=== PATIENT | female | born 1940 ===

== ENCOUNTER 2017-12-01 11:56 | Inpatient (IN) | payer MEDICARE ==
[2017-12-01 12:36] VITALS: BMI 27.6
[2017-12-01] MEDS ORDERED: Apap-Butalbital-Caffeine 325-50-40mg Tab PO PRN (17:13)
[2017-12-01] MEDS: Latanoprost 0.005% Opht SOUTION OU SCH (21:53)
[2017-12-02] MEDS: Levothyroxine 88 MCG TAB PO SCH (06:26)
[2017-12-02 06:41] LABS: HEMOGLOBIN 11.5 g/dL (12.0-16.0); MEAN CELL VOLUME 72.5 fl (81.0-99.0); MEAN CORPUSCULAR HEMOGLOBIN 22.7 pg (27.0-31.0); MEAN CORPUSCULAR HGB CONC 31.3 g/dL (33.0-37.0); RBC 5.05 Mil/uL (3.80-5.20); RED CELL DISTRIBUTION WIDTH 15.1 % (11.5-14.5); WHITE BLOOD COUNT 6.8 K/uL (4.8-10.8)
[2017-12-02 07:00] LABS: ALBUMIN 3.6 g/dL (3.5-5.0); ALT/SGPT 22 U/L (9-52); AST/SGOT 43 U/L (14-36); BLOOD UREA NITROGEN 17 mg/dl (7-17); CALCIUM 9.4 mg/dL (8.4-10.2); GFR AFRICAN-AMERICAN > 60; GFR NON-AFRICAN AMERICAN > 60
[2017-12-02] MEDS: Enoxaparin 40 mg Syringe SC SCH (08:33)
--- NOTE | 2017-12-02 10:45 | CP.PCM.CON ---
History of Present Illness - History of Present Illness History of Present Illness: Ms. Spence is 77 yr old woman who has a presumed history of prior stroke, and neurology consult placed for dizziness and confusion and left sided numbness which occurred on the day of admission and intermittent left sided numbness x 3 months. Patient describes the headache as a gradual onset. Patient states that she lost her balance because of the dizziness.. The MRI Brain which has already been done and shows acute to subacute left mca stroke. There is also a history of an old cerebellar stroke on CT head which Miss Spence is not aware of. On admission NIHSS stroke scale is 6. During the admission, she develop pulmonary congestion and was given diuretic and on bipap machine for a day. She was transferred to [facility] acute rehab for further therapy. Review of Systems - Review of Systems All systems: reviewed and no additional remarkable complaints except Past Patient History - Past Medical History & Family History Past Medical History?: Yes - Past Social History Smoking Status: Former Smoker - CARDIAC Hx Congestive Heart Failure: Yes Hx Hypercholesterolemia: Yes Hx Hypertension: Yes - NEUROLOGICAL HX Cerebrovascular Accident: Yes (As per patient had mild CVA) Other/Comment: As per Patient she had a mild stroke years ago, patient not sure what year. - ENDOCRINE/METABOLIC Other/Comment: Pre diabetic. 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 - HEMATOLOGICAL/ONCOLOGICAL Hx AIDS: No Hx Human Immunodeficiency Virus (HIV): No - MUSCULOSKELETAL/RHEUMATOLOGICAL Hx Falls: Yes - GENITOURINARY/GYNECOLOGICAL Other/Comment: fibroids - PSYCHIATRIC Hx Substance Use: No - SURGICAL HISTORY Hx Surgeries: No Other/Comment: bilateral tubal ligation - ANESTHESIA Hx Anesthesia: Yes Hx Anesthesia Reactions: No Meds Allergies/Adverse Reactions: Allergies Allergy/AdvReac Type Severity Reaction Status Date / Time No Known Allergies Allergy Verified 12/01/17 15:19 - Medications Medications: Current Medications Acetaminophen (Tylenol 325mg Tab) 650 mg PO Q6 PRN PRN Reason: Pain scale 1-10 Acetaminophen/Butalbital/Caffeine (Fioricet) 1 tab PO Q4 PRN PRN Reason: Headache Aspirin (Aspirin Chewable) 81 mg PO DAILY [facility] Last Admin: 12/02/17 08:33 Dose: 81 mg Atorvastatin Calcium (Lipitor) 10 mg PO HS [facility] Last Admin: 12/01/17 21:52 Dose: 10 mg Clopidogrel Bisulfate (Plavix) 75 mg PO DAILY [facility] Last Admin: 12/02/17 08:33 Dose: 75 mg Enoxaparin Sodium (Lovenox) 40 mg SC DAILY [facility] PRN Reason: Protocol Last Admin: 12/02/17 08:33 Dose: 40 mg Famotidine (Pepcid) 20 mg PO DAILY [facility] Last Admin: 12/02/17 08:33 Dose: 20 mg Furosemide (Lasix) 20 mg PO DAILY [facility] Last Admin: 12/02/17 08:33 Dose: 20 mg Latanoprost (Xalatan Opht) 1 drop OU HS [facility] Last Admin: 12/01/17 21:53 Dose: 1 drop Levothyroxine Sodium (Synthroid) 88 mcg PO DAILY@0630 [facility] Last Admin: 12/02/17 06:26 Dose: 88 mcg Physical Exam - Constitutional Appears: No Acute Distress - Head Exam Head Exam: NORMAL INSPECTION - Eye Exam Eye Exam: EOMI, Normal appearance, PERRL Pupil Exam: NORMAL ACCOMODATION, PERRL - ENT Exam ENT Exam: Mucous Membranes Moist, Normal Exam - Neck Exam Neck exam: Positive for: Normal Inspection - Respiratory Exam Respiratory Exam: Clear to Auscultation Bilateral, NORMAL BREATHING PATTERN - Cardiovascular Exam Cardiovascular Exam: +S1, +S2 - GI/Abdominal Exam GI & Abdominal Exam: Normal Bowel Sounds, Soft. absent: Tenderness - Extremities Exam Extremities exam: Positive for: normal inspection Additional comments: right side weakness - Neurological Exam Neurological exam: Alert, CN II-XII Intact, Oriented x3 - Expanded Neurological Exam Expanded Patient oriented to: person, place, time Cranial nerves: EOM's Intact: Normal, Facial Palsey w/Forehead Movement: Normal , Facial Palsey w/o Forehead Movement: Normal, Facial Sensation: Normal, Gag Reflex: Normal, Nystagmus: Normal, Tongue Deviation: Normal Cerebellar Function: Finger to Nose: Normal, Heel to Eisenberg: Abnormal Right Upper motor neuron: Sudarshan Neglect: Normal, Pronator Drift: Abnormal Right, Sensory Extinction: Normal Sensory exam: Lower Extremity 2 Point Discrimination: Normal, Lower Extremity Light Touch: Normal, Lower Extremity Pin Prick: Normal, Lower Extremity Temperature: Normal, Upper Extremity 2 Point Discrimination: Normal, Upper Extremity Light Touch: Normal, Upper Extremity Pin Prick: Normal, Upper Extremity Temperature: Normal Neuro motor strength exam: Left Upper Extremity: 5, Right Upper Extremity: 3, Left Lower Extremity: 5, Right Lower Extremity: 3 Results - Vital Signs Recent Vital Signs: Last Vital Signs Temp 97.9 F 12/02/17 07:33 Pulse 66 12/02/17 07:33 Resp 20 12/02/17 07:33 BP 122/72 12/02/17 08:33 Pulse Ox 97 12/02/17 07:33 - Labs Result Diagrams: 12/02/17 05:20 12/02/17 05:20 Labs: Laboratory Results - last 24 hr 12/02/17 12/02/17 05:20 05:20 WBC 6.8 RBC 5.05 Hgb 11.5 L Hct 36.6 MCV 72.5 L MCH 22.7 L MCHC 31.3 L RDW 15.1 H Plt Count 342 Sodium 139 Potassium 4.1 Chloride 101 Carbon Dioxide 27 Anion Gap 15 BUN 17 Creatinine 0.9 Est GFR ( Amer) > 60 Est GFR (Non-Af Amer) > 60 Random Glucose 115 H Calcium 9.4 Total Bilirubin 0.6 AST 43 H ALT 22 Alkaline Phosphatase 88 Total Protein 7.2 Albumin 3.6 Globulin 3.7 Albumin/Globulin Ratio 1.0 Assessment & Plan (1) Ischemic stroke Assessment and Plan: Ms. Spence is 77 yr old woman who has a presumed history of prior stroke, dizziness and confusion and left sided numbness which occurred on the day of admission and intermittent left sided numbness x 3 months. Patient describes the headache as a gradual onset. Case discussed with DR. Newton, recommend the followin. PT/OT/ST eval and treat 2. continue aspirin 81 mg PO daily and plavix 75 mg PO daily 3. continue statin with goal to keep LDL < 70 4. DVT prophylaxis 5. Blood pressure control, glycemic control 6. echocardiogram since patient refused echocardiogram and nuclear test in [place] to evaluate LV function, especially with her incident of pulmonary congestion. Thank you Status: Acute
--- NOTE | 2017-12-02 11:48 | PSY.TMCNF ---
Nursing - Vital Signs Vital Signs (Last 8 hours): Vital Signs 12/02/17 12/02/17 12/02/17 07:33 08:33 11:38 Temperature 97.9 F 97.9 F Pulse Rate 66 66 Respiratory 20 20 Rate Blood Pressure 122/72 122/72 122/72 O2 Sat by Pulse 97 Oximetry Pain: 0 - Precautions: Precautions: Fall Prevention - Medications/Other Issues Comment: -(+) periods of confusion and forgetfulness. - for 2D echo - Consults Comment: Dr. Lorenz/ Dr. Newton - Toileting Toileting: Moderate Assistance - Bladder Management Bladder Pattern: Normal Voiding Method: Toilet, Bedpan Bladder Management: Moderate Assistance Frequency of Accidents: 0 - Bowel Management Bowel Pattern: Normal Bowel Management: Moderate Assistance Frequency of Accidents: 0 - Transfers Transfers: Moderate Assistance - ADL's ADL's: Moderate Assistance - Patient/Family Teaching Comments: Care post CVA and safety precautions - Goals/Time Frame Comments: Per multidisciplinary care plan and goals - Provider Provider: Stephanie LOPEZN RN CRRN Physical Therapy - Pain Management Techniques: Medication - Assessment/Plan Assessment: Marian Spence presents with moderate deficits in cognitive- linguistic skills as evidenced by decreased orientation, short term recall, thought organization and reasoning. Pt would benefit from skilled ST tx to improve these areas 3-5x/week. - Provider License Number: [id number] Occupational Therapy - Arousal/Attention/Orientation Patient Orientation: Person, Place - ADL/IADL Self Feeding: Supervision, Verbal Cues, Set-up Help, Moderate Assistance Grooming: Supervision, Verbal Cues, Set-up Help, Moderate Assistance Dressing-Upper Extremity: Supervision, Verbal Cues, Set-up Help, Moderate Assistance Dressing-Lower Extremity: Supervision, Verbal Cues, Set-up Help, Maximum Assistance - Sitting Balance Static Sitting: Supervision Dynamic Sitting: Requires supervision - Transfers Wheelchair to Bed Transfers: Supervision, Verbal Cues, Set-up Help, Minimal Assistance, Moderate Assistance Toilet Transfers: Supervision, Verbal Cues, Set-up Help, Minimal Assistance, Moderate Assistance - Upper Extremity Status Right Upper Extremity Comment: Decreased coordination R hand. - Pain Alleviating Techniques: Medication - Assessment/Plan Assessment: Marian Spence presents with moderate deficits in cognitive- linguistic skills as evidenced by decreased orientation, short term recall, thought organization and reasoning. Pt would benefit from skilled ST tx to improve these areas 3-5x/week. - Provider Therapist: LARRY Moore Speech Therapy - Consult Information Patient on Program: Yes Medical Diagnosis: CVA Treatment Diagnosis: moderate cognitive-lingusitic deficits - Assessment Problem Solving Impairment: Moderate Memory Impairment: Moderate - Plan Assessment: Marian Spence presents with moderate deficits in cognitive- linguistic skills as evidenced by decreased orientation, short term recall, thought organization and reasoning. Pt would benefit from skilled ST tx to improve these areas 3-5x/week. Plan: Continue Speech/Language Therapy Frequency: 3-5 times per week Duration: 1 week Goals/Timeframe: As per evaluation dated 12/02/17 Recommendations: Speech-language therapy 3-5x/week. - Provider Therapist: Marybeth Brown License Number: [id number] Recreational Therapy - Assessment Assessment/Plan: Marian Spence presents with moderate deficits in cognitive- linguistic skills as evidenced by decreased orientation, short term recall, thought organization and reasoning. Pt would benefit from skilled ST tx to improve these areas 3-5x/week. Nutrition - Current Diet Current Diet/ Supplement/ Feedings: Heart healthy diet - Appetite Percent Meal Consumed: 75-100% - Comments Comments: Care post CVA and safety precautions - Assessment/Goals/Time Frame Assessment/Goals/Time Frame: -(+) periods of confusion and forgetfulness. - for 2D echo - Provider Provider: Diane Márquez RD Case Management - Discharge Plan Discharge Plan: Home alone Rehabilitation Plan - Treatment Plan Treatment Plan: Physical Therapy, Occupational Therapy, Speech, Dietary, Patient /Family Education - Recommendation Recommendation: Physical Therapy, Occupational Therapy, Speech, Dietary, Patient /Family Education - Discharge Plan Discharge to: Home
--- NOTE | 2017-12-02 14:10 | CP.PCM.CON ---
History of Present Illness - History of Present Illness History of Present Illness: 77 year old female with left hemiplegia, with PMH of CHF., HTN, HYpothyroidism now admitted for acute rehab Review of Systems - Musculoskeletal Musculoskeletal: Abnormal Gait, Muscle Weakness - Neurological Neurological: Lack of Coordination Past Patient History - Past Medical History & Family History Past Medical History?: Yes - Past Social History Smoking Status: Former Smoker - CARDIAC Hx Congestive Heart Failure: Yes Hx Hypercholesterolemia: Yes Hx Hypertension: Yes - NEUROLOGICAL HX Cerebrovascular Accident: Yes (As per patient had mild CVA) Other/Comment: As per Patient she had a mild stroke years ago, patient not sure what year. - ENDOCRINE/METABOLIC Other/Comment: Pre diabetic. 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 - HEMATOLOGICAL/ONCOLOGICAL Hx AIDS: No Hx Human Immunodeficiency Virus (HIV): No - MUSCULOSKELETAL/RHEUMATOLOGICAL Hx Falls: Yes - GENITOURINARY/GYNECOLOGICAL Other/Comment: fibroids - PSYCHIATRIC Hx Substance Use: No - SURGICAL HISTORY Hx Surgeries: No Other/Comment: bilateral tubal ligation - ANESTHESIA Hx Anesthesia: Yes Hx Anesthesia Reactions: No Meds Allergies/Adverse Reactions: Allergies Allergy/AdvReac Type Severity Reaction Status Date / Time No Known Allergies Allergy Verified 12/01/17 15:19 - Medications Medications: Current Medications Acetaminophen (Tylenol 325mg Tab) 650 mg PO Q6 PRN PRN Reason: Pain scale 1-10 Acetaminophen/Butalbital/Caffeine (Fioricet) 1 tab PO Q4 PRN PRN Reason: Headache Aspirin (Aspirin Chewable) 81 mg PO DAILY [facility] Last Admin: 12/02/17 08:33 Dose: 81 mg Atorvastatin Calcium (Lipitor) 10 mg PO HS [facility] Last Admin: 12/01/17 21:52 Dose: 10 mg Clopidogrel Bisulfate (Plavix) 75 mg PO DAILY [facility] Last Admin: 12/02/17 08:33 Dose: 75 mg Enoxaparin Sodium (Lovenox) 40 mg SC DAILY [facility] PRN Reason: Protocol Last Admin: 12/02/17 08:33 Dose: 40 mg Famotidine (Pepcid) 20 mg PO DAILY [facility] Last Admin: 12/02/17 08:33 Dose: 20 mg Furosemide (Lasix) 20 mg PO DAILY [facility] Last Admin: 12/02/17 08:33 Dose: 20 mg Latanoprost (Xalatan Opht) 1 drop OU HS [facility] Last Admin: 12/01/17 21:53 Dose: 1 drop Levothyroxine Sodium (Synthroid) 88 mcg PO DAILY@0630 [facility] Last Admin: 12/02/17 06:26 Dose: 88 mcg Physical Exam - Head Exam Head Exam: ATRAUMATIC, NORMAL INSPECTION, NORMOCEPHALIC - Eye Exam Eye Exam: EOMI, Normal appearance, PERRL Pupil Exam: NORMAL ACCOMODATION - ENT Exam ENT Exam: Mucous Membranes Moist, Normal Exam - Neck Exam Neck exam: Positive for: Normal Inspection - Respiratory Exam Respiratory Exam: Clear to Auscultation Bilateral, NORMAL BREATHING PATTERN - Cardiovascular Exam Cardiovascular Exam: REGULAR RHYTHM - GI/Abdominal Exam GI & Abdominal Exam: Normal Bowel Sounds - Rectal Exam Rectal Exam: NORMAL INSPECTION Additional comments: left leg weakness problems with coordination - Exam External exam: NORMAL EXTERNAL EXAM Bimanual exam: NORMAL BIMANUAL EXAM - Extremities Exam Extremities exam: Positive for: normal inspection - Back Exam Back exam: NORMAL INSPECTION - Neurological Exam Neurological exam: Alert - Psychiatric Exam Psychiatric exam: Normal Affect, Normal Mood - Skin Skin Exam: Dry, Intact Results - Vital Signs Recent Vital Signs: Last Vital Signs Temp 97.9 F 12/02/17 11:38 Pulse 66 12/02/17 11:38 Resp 20 12/02/17 11:38 BP 122/72 12/02/17 11:38 Pulse Ox 97 12/02/17 07:33 - Labs Result Diagrams: 12/02/17 05:20 12/02/17 05:20 Labs: Laboratory Results - last 24 hr 12/02/17 12/02/17 05:20 05:20 WBC 6.8 RBC 5.05 Hgb 11.5 L Hct 36.6 MCV 72.5 L MCH 22.7 L MCHC 31.3 L RDW 15.1 H Plt Count 342 Sodium 139 Potassium 4.1 Chloride 101 Carbon Dioxide 27 Anion Gap 15 BUN 17 Creatinine 0.9 Est GFR ( Amer) > 60 Est GFR (Non-Af Amer) > 60 Random Glucose 115 H Calcium 9.4 Total Bilirubin 0.6 AST 43 H ALT 22 Alkaline Phosphatase 88 Total Protein 7.2 Albumin 3.6 Globulin 3.7 Albumin/Globulin Ratio 1.0 Assessment & Plan (1) Back pain Status: Acute (2) CHF (congestive heart failure) Status: Acute (3) Dizziness Status: Acute (4) Ischemic stroke Assessment and Plan: plan for physical,occupational, rec and speech therapy for range of motion, strengthening transfers and gait training Status: Acute (5) Osteoarthritis Status: Acute (6) Peripheral edema Status: Acute
--- NOTE | 2017-12-02 14:25 | CP.PCM.PN ---
Subjective - Date & Time of Evaluation Date of Evaluation: 12/02/17 Time of Evaluation: 11:00 - Subjective Subjective: no acute complaints at present Objective - Vital Signs/Intake and Output Vital Signs (last 24 hours): Temp Pulse Resp BP Pulse Ox 97.9 F 66 20 122/72 97 12/02/17 11:38 12/02/17 11:38 12/02/17 11:38 12/02/17 11:38 12/02/17 07:33 - Medications Medications: Current Medications Acetaminophen (Tylenol 325mg Tab) 650 mg PO Q6 PRN PRN Reason: Pain scale 1-10 Acetaminophen/Butalbital/Caffeine (Fioricet) 1 tab PO Q4 PRN PRN Reason: Headache Aspirin (Aspirin Chewable) 81 mg PO DAILY [facility] Last Admin: 12/02/17 08:33 Dose: 81 mg Atorvastatin Calcium (Lipitor) 10 mg PO HS [facility] Last Admin: 12/01/17 21:52 Dose: 10 mg Clopidogrel Bisulfate (Plavix) 75 mg PO DAILY [facility] Last Admin: 12/02/17 08:33 Dose: 75 mg Enoxaparin Sodium (Lovenox) 40 mg SC DAILY [facility] PRN Reason: Protocol Last Admin: 12/02/17 08:33 Dose: 40 mg Famotidine (Pepcid) 20 mg PO DAILY [facility] Last Admin: 12/02/17 08:33 Dose: 20 mg Furosemide (Lasix) 20 mg PO DAILY [facility] Last Admin: 12/02/17 08:33 Dose: 20 mg Latanoprost (Xalatan Opht) 1 drop OU HS [facility] Last Admin: 12/01/17 21:53 Dose: 1 drop Levothyroxine Sodium (Synthroid) 88 mcg PO DAILY@0630 [facility] Last Admin: 12/02/17 06:26 Dose: 88 mcg - Labs Labs: 12/02/17 05:20 12/02/17 05:20 - Head Exam Head Exam: ATRAUMATIC, NORMAL INSPECTION, NORMOCEPHALIC - Eye Exam Eye Exam: EOMI, Normal appearance, PERRL Pupil Exam: NORMAL ACCOMODATION - ENT Exam ENT Exam: Mucous Membranes Moist, Normal Exam - Neck Exam Neck Exam: Full ROM, Normal Inspection - Respiratory Exam Respiratory Exam: Clear to Ausculation Bilateral, NORMAL BREATHING PATTERN - Cardiovascular Exam Cardiovascular Exam: REGULAR RHYTHM - GI/Abdominal Exam GI & Abdominal Exam: Soft, Normal Bowel Sounds - Rectal Exam Rectal Exam: NORMAL INSPECTION - Exam External exam: NORMAL EXTERNAL EXAM - Extremities Exam Extremities Exam: Full ROM, Normal Capillary Refill, Normal Inspection - Back Exam Back Exam: NORMAL INSPECTION - Neurological Exam Neurological Exam: Alert, Awake Neuro motor strength exam: Left Upper Extremity: 3, Left Lower Extremity: 3 Additional comments: problems with balance coordination - Psychiatric Exam Psychiatric exam: Normal Affect - Skin Skin Exam: Dry, Intact Assessment and Plan (1) Back pain Status: Acute (2) CHF (congestive heart failure) Status: Acute (3) Dizziness Status: Acute (4) Ischemic stroke Assessment & Plan: plan for physical, occupational, rec and speech therapy status post team conference Status: Acute (5) Osteoarthritis Status: Acute (6) Peripheral edema Status: Acute
--- NOTE | 2017-12-02 14:26 | PCM.OPOC ---
Physiatry Overall Plan of Care - Overall Plan of Care Estimated Length of Stay in Weeks: 3 Rehab Impairment: Mobility, Gait, Cognition, Speech, Balance, Coordination Etiologic Diagnosis: Cerebrovascular Accident Rehab/Medical Prognosis: Fair - Anticipated Interventions Physical Therapy:: Yes Occupational Therapy:: Yes Speech Therapy:: Yes Recreational Therapy:: Yes - Therapy Goals Bed Mobility: Independent Ambulation: Independent Functional Positional Changes:: Independent - Functional Outcomes Functional Outcomes: fair - Discharge Plan Identification of Barriers to Discharge: Cognition Discharge Destination: Home
[2017-12-02] MEDS: Latanoprost 0.005% Opht SOUTION OU SCH (21:13)
[2017-12-03] MEDS: Levothyroxine 88 MCG TAB PO SCH (06:07)
[2017-12-03] MEDS: Enoxaparin 40 mg Syringe SC SCH (08:03)
--- NOTE | 2017-12-03 09:09 | HP ---
HISTORY OF PRESENT ILLNESS: This is a 77-year-old female with history of multiple medical problems, recently sustained a CVA of the left middle cerebral artery. The patient was transferred from [facility] to acute rehabilitation at [facility] for physical therapy and deconditioning. The patient denied having shortness of breath or chest pain. The patient denied having any dizziness. REVIEW OF SYSTEMS: The patient had pulmonary congestion and was given diuretic and BiPAP machine for a day while she was in [facility] as she was given IV fluids. Other review of system is negative. ALLERGIES: NO KNOWN ALLERGIES. MEDICATIONS: Medications are reviewed as per MAR. SOCIAL HISTORY: History of smoking more than 25 years. No ETOH or substance abuse. FAMILY HISTORY: Noncontributory. PHYSICAL EXAMINATION: GENERAL: The patient is in bed, not in any cardiopulmonary distress. VITAL SIGNS: Blood pressure 130/66, temperature 97.4, respiratory rate 20, and pulse 69. HEENT: Pupils equal and reactive to light. Normal appearing mucosa of the conjunctivae, oropharynx, and nasal membrane mucosa. NECK: Supple. No JVD. No carotid bruits. No lymph nodes. No thyromegaly. CHEST AND LUNGS: Bilaterally symmetrical expansion. Good air exchange. No rales. No rhonchi. CARDIOVASCULAR SYSTEM: PMI is not localized. S1, S2. No additional sounds. ABDOMEN: Normoactive bowel sounds. No tenderness. No organomegaly. No masses. EXTREMITIES: No cyanosis, no clubbing, no edema. ANIMAL ANATOMIST: Alert, awake, and oriented x2, and the patient has slight right-sided weakness in both right upper and lower extremity. LABORATORY DATA: Blood work was unremarkable. ASSESSMENT: 1. 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 2. Hypertension. 3. Impaired glucose tolerance. 4. Ex-smoker. 5. Hypothyroidism. PLAN: We will continue the patient's medications that were started in [facility], and continue physical therapy and occupational therapy. Joanie Calixto MD
--- NOTE | 2017-12-03 09:26 | CP.PCM.PN ---
Subjective - Date & Time of Evaluation Date of Evaluation: 12/03/17 Time of Evaluation: 09:23 - Subjective Subjective: Ms. Spence was seen and examined at the bedside. She is alert, oriented, but complains of nausea but no vomiting. Her systolic blood pressure was 160, lasix was given. She denies any blurred vision, diplopia, headache. She is able to follow simple commands with right side weakness. There was no untoward events overnight. Objective - Vital Signs/Intake and Output Vital Signs (last 24 hours): Temp Pulse Resp BP Pulse Ox 98.2 F 66 18 142/84 96 12/03/17 07:40 12/03/17 08:25 12/03/17 08:25 12/03/17 08:25 12/03/17 07:40 - Medications Medications: Current Medications Acetaminophen (Tylenol 325mg Tab) 650 mg PO Q6 PRN PRN Reason: Pain scale 1-10 Acetaminophen/Butalbital/Caffeine (Fioricet) 1 tab PO Q4 PRN PRN Reason: Headache Amlodipine Besylate (Norvasc) 2.5 mg PO DAILY [facility] Aspirin (Aspirin Chewable) 81 mg PO DAILY [facility] Last Admin: 12/03/17 08:04 Dose: 81 mg Atorvastatin Calcium (Lipitor) 10 mg PO HS [facility] Last Admin: 12/02/17 21:13 Dose: 10 mg Clopidogrel Bisulfate (Plavix) 75 mg PO DAILY [facility] Last Admin: 12/03/17 08:03 Dose: 75 mg Enoxaparin Sodium (Lovenox) 40 mg SC DAILY [facility] PRN Reason: Protocol Last Admin: 12/03/17 08:03 Dose: 40 mg Famotidine (Pepcid) 20 mg PO DAILY [facility] Last Admin: 12/03/17 08:04 Dose: 20 mg Furosemide (Lasix) 20 mg PO DAILY [facility] Last Admin: 12/03/17 08:03 Dose: 20 mg Latanoprost (Xalatan Opht) 1 drop OU HS [facility] Last Admin: 12/02/17 21:13 Dose: 1 drop Levothyroxine Sodium (Synthroid) 88 mcg PO DAILY@0630 [facility] Last Admin: 12/03/17 06:07 Dose: 88 mcg Ondansetron HCl (Zofran Odt) 8 mg PO Q8 PRN PRN Reason: Nausea/Vomiting Last Admin: 12/03/17 09:07 Dose: 8 mg - Labs Labs: 12/02/17 05:20 12/02/17 05:20 - Constitutional Appears: No Acute Distress - Head Exam Head Exam: NORMAL INSPECTION - Eye Exam Pupil Exam: PERRL - Neurological Exam Neurological Exam: Alert, Awake, Oriented x3 Neuro motor strength exam: Left Upper Extremity: 5, Right Upper Extremity: 3, Left Lower Extremity: 5, Right Lower Extremity: 3 Additional comments: neurological unchanged from previous examination. Assessment and Plan (1) Ischemic stroke Assessment & Plan: Case discussed with Dr. Newton, continue all current medical, physical, occupational, and speech therapies. Recommend low dose amlodipine 2.5 mg PO daily to help control blood pressure, repeat CT scan of the head without contrast, monitor blood pressure closely, hydration, keep head of bed elevated at least 30 degrees. Status: Acute
--- NOTE | 2017-12-03 12:37 | CARD ---
APPROVED REPORT EXAM: Two-dimensional and M-mode echocardiogram with Doppler and color Doppler. Other Information Quality : GoodRhythm : NSR INDICATION CVA/TIA Congestive Heart Failure 2D DIMENSIONS IVSd1.26 (0.7-1.1cm)LVDd4.46 (3.9-5.9cm) LVOT Diameter1.97 (1.8-2.4cm)PWd0.92 (0.7-1.1cm) IVSs1.34 (0.8-1.2cm)LVDs3.80 (2.5-4.0cm) FS (%) 14.8 %PWs1.06 (0.8-1.2cm) M-Mode DIMENSIONS Left Atrium (MM)3.32 (2.5-4.0cm)IVSd1.18 (0.7-1.1cm) Aortic Root2.79 (2.2-3.7cm)LVDd4.44 (4.0-5.6cm) Aortic Cusp Exc.1.68 (1.5-2.0cm)PWd0.91 (0.7-1.1cm) IVSs1.41 cmFS (%) 25 % LVDs3.32 (2.0-3.8cm)PWs1.35 cm Mitral Valve MV E Btzlhwhy51.4cm/sMV DECEL [id number] A Byybecnm08.3cm/s MV [id number]/A ratio1.1MVA (PHT)2.62cm2 TDI Lateral E' Peak V5.95cm/sMedial E' Peak V3.34cm/sE/Lateral E'9.6 E/Medial E'17.2 LEFT VENTRICLE The left ventricle is normal size. There is mild to moderate concentric left ventricular hypertrophy. The left ventricular function is normal. The left ventricular ejection fraction is 60% There is normal LV segmental wall motion. The left ventricular diastolic function is normal. No left ventricle thrombus noted on this study. There is no ventricular septal defect visualized. There is no left ventricular aneurysm. There is no mass noted in the left ventricle. RIGHT VENTRICLE The right ventricle is normal size. There is normal right ventricular wall thickness. The right ventricular systolic function is normal. ATRIA The left atrium size is normal. The right atrium size is normal. The interatrial septum is intact with no evidence for an atrial septal defect. AORTIC VALVE The aortic valve is normal in structure. There is mild aortic regurgitation. There is no aortic valvular stenosis. There is no aortic valvular vegetation. MITRAL VALVE The mitral valve is normal in structure. There is no evidence of mitral valve prolapse. There is no mitral valve stenosis. Mitral regurgitation is mild. TRICUSPID VALVE The tricuspid valve is normal in structure. There is no tricuspid valve regurgitation noted. There is no tricuspid valve prolapse or vegetation. There is no tricuspid valve stenosis. PULMONIC VALVE The pulmonary valve is normal in structure. There is no pulmonic valvular regurgitation. There is no pulmonic valvular stenosis. GREAT VESSELS The aortic root is normal in size. The ascending aorta is normal in size. The IVC is normal in size and collapses >50% with inspiration. PERICARDIAL EFFUSION The pericardium appears normal. There is no pleural effusion. <Conclusion> Normal LV systolic function Concentric LVH Mild Mitral Regurgitation Mild Aortic Insufficiency
--- NOTE | 2017-12-03 14:58 | CT ---
PROCEDURE: CT HEAD WITHOUT CONTRAST. HISTORY: Persistent hypertension and nausea COMPARISON: None available. TECHNIQUE: Axial computed tomography images were obtained through the head/brain without intravenous contrast. Radiation dose: Total exam DLP = 808.15 mGy-cm. This CT exam was performed using one or more of the following dose reduction techniques: Automated exposure control, adjustment of the mA and/or kV according to patient size, and/or use of iterative reconstruction technique. FINDINGS: HEMORRHAGE: No intracranial hemorrhage. BRAIN: There are mild chronic microangiopathic changes. There is asymmetric low attenuation in the left parietal subcortical white matter. There is no mass, mass effect or abnormal extra-axial fluid collection. VENTRICLES: There is mild age-related global parenchymal volume loss and proportionate enlargement of the ventricles and cortical sulci. CALVARIUM: There is hyperostosis frontalis interna, otherwise the skull base and calvarium are normal. PARANASAL SINUSES: Predominantly clear. MASTOID AIR CELLS: Predominantly clear. OTHER FINDINGS: None. IMPRESSION: Asymmetric left parietal subcortical white matter abnormality is nonspecific and could represent focal severe chronic microangiopathic changes, old infarction or vasogenic edema. An MRI of the brain without and with intravenous contrast would be helpful for definitive evaluation. Mild chronic microangiopathic changes and mild age-related global parenchymal volume loss. No acute intracranial hemorrhage.
[2017-12-03] MEDS: Latanoprost 0.005% Opht SOUTION OU SCH (21:26)
[2017-12-04] MEDS: Magnesium Hydroxide Susp 30 ml UD PO PRN (00:33)
--- NOTE | 2017-12-04 02:46 | PN ---
DATE: 12/03/2017 SUBJECTIVE: The patient is seen today, 12/03/2017. She is complaining of nausea. PHYSICAL EXAMINATION: VITAL SIGNS: Blood pressure 109/68, temperature 98.2, respiratory rate 20, and pulse 60. HEENT: Pupils are equal and reactive to light. Normal-appearing mucosa of the conjunctivae, oropharynx, and nasal membrane mucosa. NECK: Supple. No JVD. No carotid bruits. No lymph nodes. No thyromegaly. CHEST AND LUNGS: Bilateral symmetrical expansion. Good air exchange. No rales. No rhonchi. CARDIOVASCULAR SYSTEM: PMI not localized. S1 and S2. No additional sounds. ABDOMEN: Normoactive bowel sounds. No tenderness. No organomegaly. No masses. EXTREMITIES: No cyanosis. No clubbing. No edema. CENTRAL NERVOUS SYSTEM: Alert, awake, and oriented x2, and the patient has slight right-sided weakness compared to the left. ASSESSMENT: Cerebrovascular with right-sided weakness, hypertension, impaired glucose tolerance, atherosclerotic cardiovascular disease, nausea. PLAN: We will give the patient Zofran and continue Pepcid. Continue physical therapy and occupational therapy. Joanie Calixto MD
[2017-12-04] MEDS: Levothyroxine 88 MCG TAB PO SCH (06:05)
[2017-12-04] MEDS: Enoxaparin 40 mg Syringe SC SCH (08:13)
--- NOTE | 2017-12-04 09:40 | CP.PCM.PN ---
Subjective - Date & Time of Evaluation Date of Evaluation: 12/04/17 Time of Evaluation: 09:40 - Subjective Subjective: Ms. Spence was seen and examined at the bedside. She is alert, oriented, but complains of nausea but no vomiting. She denies any headache, blurred vision, diplopia, headache. She is able to follow simple commands with right side weakness. CT scan of the head without contrast showed asymmetrical left parietal subcortical white matter abnormality is non specific and could represent focal severe chronic microangiopathic changes, old infarction or vasogenic edema. Mild chronic microangiopathic changes and mild age-related global parenchymal volume loss. No acute intracranial hemorrhage.There was no untoward events overnight. Objective - Vital Signs/Intake and Output Vital Signs (last 24 hours): Temp Pulse Resp BP Pulse Ox 97.9 F 71 20 146/67 95 12/03/17 21:35 12/04/17 08:13 12/03/17 21:35 12/04/17 08:13 12/03/17 21:35 - Medications Medications: Current Medications Acetaminophen (Tylenol 325mg Tab) 650 mg PO Q6 PRN PRN Reason: Pain scale 1-10 Acetaminophen/Butalbital/Caffeine (Fioricet) 1 tab PO Q4 PRN PRN Reason: Headache Amlodipine Besylate (Norvasc) 2.5 mg PO DAILY [facility] Last Admin: 12/04/17 08:13 Dose: 2.5 mg Aspirin (Aspirin Chewable) 81 mg PO DAILY [facility] Last Admin: 12/04/17 08:12 Dose: 81 mg Atorvastatin Calcium (Lipitor) 10 mg PO HS [facility] Last Admin: 12/03/17 21:25 Dose: 10 mg Clopidogrel Bisulfate (Plavix) 75 mg PO DAILY [facility] Last Admin: 12/04/17 08:13 Dose: 75 mg Enoxaparin Sodium (Lovenox) 40 mg SC DAILY [facility] PRN Reason: Protocol Last Admin: 12/04/17 08:13 Dose: 40 mg Famotidine (Pepcid) 20 mg PO DAILY [facility] Last Admin: 12/04/17 08:13 Dose: 20 mg Furosemide (Lasix) 20 mg PO DAILY [facility] Last Admin: 12/04/17 08:12 Dose: 20 mg Latanoprost (Xalatan Opht) 1 drop OU HS [facility] Last Admin: 12/03/17 21:26 Dose: 1 drop Levothyroxine Sodium (Synthroid) 88 mcg PO DAILY@0630 [facility] Last Admin: 12/04/17 06:05 Dose: 88 mcg Magnesium Hydroxide (Milk Of Magnesia) 30 ml PO HS PRN PRN Reason: Constipation Last Admin: 12/04/17 00:33 Dose: 30 ml Ondansetron HCl (Zofran Odt) 8 mg PO Q8 PRN PRN Reason: Nausea/Vomiting Last Admin: 12/03/17 09:07 Dose: 8 mg - Labs Labs: 12/02/17 05:20 12/02/17 05:20 - Constitutional Appears: No Acute Distress - Head Exam Head Exam: NORMAL INSPECTION - Eye Exam Pupil Exam: PERRL - Neurological Exam Neurological Exam: Alert, Awake, Oriented x3 Neuro motor strength exam: Left Upper Extremity: 5, Right Upper Extremity: 3, Left Lower Extremity: 5, Right Lower Extremity: 3 Additional comments: neurological unchanged from previous examination. Assessment and Plan (1) Ischemic stroke Assessment & Plan: Case discussed with Dr. Newton, continue all current medical, physical, occupational, and speech therapies. Recommend monitor blood pressure closely, hydration, keep head of bed elevated at least 30 degrees. Status: Acute
--- NOTE | 2017-12-04 13:37 | CP.PCM.PN ---
Subjective - Date & Time of Evaluation Date of Evaluation: 12/04/17 Time of Evaluation: 13:00 - Subjective Subjective: no acute complaints of pain Objective - Vital Signs/Intake and Output Vital Signs (last 24 hours): Temp Pulse Resp BP Pulse Ox 98.2 F 71 19 146/67 96 12/04/17 08:10 12/04/17 08:13 12/04/17 08:10 12/04/17 08:13 12/04/17 08:10 - Medications Medications: Current Medications Acetaminophen (Tylenol 325mg Tab) 650 mg PO Q6 PRN PRN Reason: Pain scale 1-10 Acetaminophen/Butalbital/Caffeine (Fioricet) 1 tab PO Q4 PRN PRN Reason: Headache Amlodipine Besylate (Norvasc) 2.5 mg PO DAILY [facility] Last Admin: 12/04/17 08:13 Dose: 2.5 mg Aspirin (Aspirin Chewable) 81 mg PO DAILY [facility] Last Admin: 12/04/17 08:12 Dose: 81 mg Atorvastatin Calcium (Lipitor) 10 mg PO HS [facility] Last Admin: 12/03/17 21:25 Dose: 10 mg Clopidogrel Bisulfate (Plavix) 75 mg PO DAILY [facility] Last Admin: 12/04/17 08:13 Dose: 75 mg Enoxaparin Sodium (Lovenox) 40 mg SC DAILY [facility] PRN Reason: Protocol Last Admin: 12/04/17 08:13 Dose: 40 mg Famotidine (Pepcid) 20 mg PO DAILY [facility] Last Admin: 12/04/17 08:13 Dose: 20 mg Furosemide (Lasix) 20 mg PO DAILY [facility] Last Admin: 12/04/17 08:12 Dose: 20 mg Latanoprost (Xalatan Opht) 1 drop OU HS [facility] Last Admin: 12/03/17 21:26 Dose: 1 drop Levothyroxine Sodium (Synthroid) 88 mcg PO DAILY@0630 [facility] Last Admin: 12/04/17 06:05 Dose: 88 mcg Magnesium Hydroxide (Milk Of Magnesia) 30 ml PO HS PRN PRN Reason: Constipation Last Admin: 12/04/17 00:33 Dose: 30 ml Ondansetron HCl (Zofran Odt) 8 mg PO Q8 PRN PRN Reason: Nausea/Vomiting Last Admin: 12/03/17 09:07 Dose: 8 mg - Labs Labs: 12/02/17 05:20 12/02/17 05:20 - Head Exam Head Exam: ATRAUMATIC, NORMAL INSPECTION, NORMOCEPHALIC - Eye Exam Eye Exam: EOMI, Normal appearance, PERRL Pupil Exam: NORMAL ACCOMODATION - ENT Exam ENT Exam: Mucous Membranes Moist, Normal Exam - Neck Exam Neck Exam: Normal Inspection - Respiratory Exam Respiratory Exam: Clear to Ausculation Bilateral, NORMAL BREATHING PATTERN - Cardiovascular Exam Cardiovascular Exam: REGULAR RHYTHM - GI/Abdominal Exam GI & Abdominal Exam: Soft, Normal Bowel Sounds - Rectal Exam Rectal Exam: NORMAL INSPECTION - Exam External exam: NORMAL EXTERNAL EXAM - Extremities Exam Extremities Exam: Full ROM, Normal Capillary Refill - Back Exam Back Exam: NORMAL INSPECTION - Neurological Exam Neurological Exam: Alert, Awake Neuro motor strength exam: Left Upper Extremity: 3, Left Lower Extremity: 3 - Psychiatric Exam Psychiatric exam: Normal Affect, Normal Mood - Skin Skin Exam: Dry, Intact Assessment and Plan (1) Back pain Status: Acute (2) CHF (congestive heart failure) Status: Acute (3) Dizziness Status: Acute (4) Ischemic stroke Assessment & Plan: plan to continue with physical, occupational, rec and speech therapy monitor skin and bowel and bladder Status: Acute (5) Osteoarthritis Status: Acute (6) Peripheral edema Status: Acute
--- NOTE | 2017-12-04 13:48 | CP.PCM.PN ---
Subjective - Date & Time of Evaluation Date of Evaluation: 12/03/17 Time of Evaluation: 11:00 - Subjective Subjective: no acute complaints at present Objective - Vital Signs/Intake and Output Vital Signs (last 24 hours): Temp Pulse Resp BP Pulse Ox 98.2 F 71 19 146/67 96 12/04/17 08:10 12/04/17 08:13 12/04/17 08:10 12/04/17 08:13 12/04/17 08:10 - Medications Medications: Current Medications Acetaminophen (Tylenol 325mg Tab) 650 mg PO Q6 PRN PRN Reason: Pain scale 1-10 Acetaminophen/Butalbital/Caffeine (Fioricet) 1 tab PO Q4 PRN PRN Reason: Headache Amlodipine Besylate (Norvasc) 2.5 mg PO DAILY [facility] Last Admin: 12/04/17 08:13 Dose: 2.5 mg Aspirin (Aspirin Chewable) 81 mg PO DAILY [facility] Last Admin: 12/04/17 08:12 Dose: 81 mg Atorvastatin Calcium (Lipitor) 10 mg PO HS [facility] Last Admin: 12/03/17 21:25 Dose: 10 mg Clopidogrel Bisulfate (Plavix) 75 mg PO DAILY [facility] Last Admin: 12/04/17 08:13 Dose: 75 mg Enoxaparin Sodium (Lovenox) 40 mg SC DAILY [facility] PRN Reason: Protocol Last Admin: 12/04/17 08:13 Dose: 40 mg Famotidine (Pepcid) 20 mg PO DAILY [facility] Last Admin: 12/04/17 08:13 Dose: 20 mg Furosemide (Lasix) 20 mg PO DAILY [facility] Last Admin: 12/04/17 08:12 Dose: 20 mg Latanoprost (Xalatan Opht) 1 drop OU HS [facility] Last Admin: 12/03/17 21:26 Dose: 1 drop Levothyroxine Sodium (Synthroid) 88 mcg PO DAILY@0630 [facility] Last Admin: 12/04/17 06:05 Dose: 88 mcg Magnesium Hydroxide (Milk Of Magnesia) 30 ml PO HS PRN PRN Reason: Constipation Last Admin: 12/04/17 00:33 Dose: 30 ml Ondansetron HCl (Zofran Odt) 8 mg PO Q8 PRN PRN Reason: Nausea/Vomiting Last Admin: 12/03/17 09:07 Dose: 8 mg - Labs Labs: 12/02/17 05:20 12/02/17 05:20 - Head Exam Head Exam: ATRAUMATIC, NORMAL INSPECTION, NORMOCEPHALIC - Eye Exam Eye Exam: EOMI, Normal appearance, PERRL Pupil Exam: NORMAL ACCOMODATION - ENT Exam ENT Exam: Mucous Membranes Moist, Normal Exam - Neck Exam Neck Exam: Full ROM, Normal Inspection - Respiratory Exam Respiratory Exam: NORMAL BREATHING PATTERN - Cardiovascular Exam Cardiovascular Exam: REGULAR RHYTHM - GI/Abdominal Exam GI & Abdominal Exam: Normal Bowel Sounds - Rectal Exam Rectal Exam: NORMAL INSPECTION - Exam External exam: NORMAL EXTERNAL EXAM - Extremities Exam Extremities Exam: Full ROM, Normal Capillary Refill, Normal Inspection - Back Exam Back Exam: NORMAL INSPECTION - Neurological Exam Neurological Exam: Alert, Awake Neuro motor strength exam: Left Upper Extremity: 3, Left Lower Extremity: 3 - Psychiatric Exam Psychiatric exam: Normal Affect, Normal Mood - Skin Skin Exam: Dry, Intact Assessment and Plan (1) Back pain Status: Acute (2) CHF (congestive heart failure) Status: Acute (3) Dizziness Status: Acute (4) Ischemic stroke Assessment & Plan: physical occupational therapy range of motion, strenghtening transfers and gait training Status: Acute (5) Osteoarthritis Status: Acute (6) Peripheral edema Status: Acute
[2017-12-04] MEDS: Latanoprost 0.005% Opht SOUTION OU SCH (21:04)
[2017-12-05] MEDS: Levothyroxine 88 MCG TAB PO SCH (06:55)
[2017-12-05] MEDS: Enoxaparin 40 mg Syringe SC SCH (09:05)
[2017-12-05 10:33] LABS: HEMOGLOBIN 11.8 g/dL (12.0-16.0); MEAN CORPUSCULAR HEMOGLOBIN 22.4 pg (27.0-31.0); MEAN CORPUSCULAR HGB CONC 30.3 g/dL (33.0-37.0); RBC 5.27 Mil/uL (3.80-5.20); RED CELL DISTRIBUTION WIDTH 15.5 % (11.5-14.5); WHITE BLOOD COUNT 7.3 K/uL (4.8-10.8)
[2017-12-05 10:51] LABS: BLOOD UREA NITROGEN 23 mg/dl (7-17); CALCIUM 9.6 mg/dL (8.4-10.2); GFR AFRICAN-AMERICAN > 60; GFR NON-AFRICAN AMERICAN > 60
--- NOTE | 2017-12-05 11:23 | PN ---
DATE: 12/05/2017 SUBJECTIVE: The patient is seen today 12/05/2017. She is not in any cardiopulmonary distress. PHYSICAL EXAMINATION: VITAL SIGNS: Blood pressure is 118/61, temperature 98.2, respiratory rate 20 and pulse 66. HEENT: Pupils equal, reactive to light. Normal appearing mucosa of the conjunctivae, oropharynx and nasal membrane mucosa. NECK: Supple. No JVD. No carotid bruit. No lymph node. No thyromegaly. CHEST AND LUNGS: Bilateral symmetrical expansion. Good air exchange. No rales, no rhonchi. CARDIOVASCULAR SYSTEM: PMI not localized. S1, S2. No additional sounds. ABDOMEN: Normoactive bowel sounds. No tenderness. No organomegaly. No masses. EXTREMITIES: No cyanosis, no clubbing, no edema. 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 No neurological deficit could be appreciated except for slight right-sided weakness. 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 2. Hypertension. 3. Hypothyroidism. PLAN: We will hold the amlodipine and Lasix and continue current medications including aspirin and Plavix. Joanie Calixto MD
[2017-12-05] MEDS: Latanoprost 0.005% Opht SOUTION OU SCH (21:15)
[2017-12-06] MEDS: Levothyroxine 88 MCG TAB PO SCH (06:00)
[2017-12-06] MEDS: Enoxaparin 40 mg Syringe SC SCH (09:13)
[2017-12-06] MEDS: Magnesium Hydroxide Susp 30 ml UD PO PRN (14:23)
[2017-12-06] MEDS: Latanoprost 0.005% Opht SOUTION OU SCH (21:26)
[2017-12-07] MEDS: Levothyroxine 88 MCG TAB PO SCH (06:02)
[2017-12-07] MEDS: Enoxaparin 40 mg Syringe SC SCH (08:00)
--- NOTE | 2017-12-07 09:56 | CP.PCM.PN ---
Subjective - Date & Time of Evaluation Date of Evaluation: 12/07/17 Time of Evaluation: 09:56 - Subjective Subjective: Ms. Spence was seen and examined at the bedside. She is alert, oriented, but complains of nausea but no vomiting. She denies any headache, blurred vision, diplopia, headache. She is able to follow simple commands with right side weakness. Echocardiocardiogram showed normal LV systolic function, concentric LVH, EF- 60%,mild mitral regurgitation, mild aortic insufficiency. Objective - Vital Signs/Intake and Output Vital Signs (last 24 hours): Temp Pulse Resp BP Pulse Ox 98.2 F 56 L 19 120/67 95 12/07/17 07:55 12/07/17 07:55 12/07/17 07:55 12/07/17 07:55 12/07/17 07:55 - Medications Medications: Current Medications Acetaminophen (Tylenol 325mg Tab) 650 mg PO Q6 PRN PRN Reason: Pain scale 1-10 Acetaminophen/Butalbital/Caffeine (Fioricet) 1 tab PO Q4 PRN PRN Reason: Headache Aspirin (Aspirin Chewable) 81 mg PO DAILY [facility] Last Admin: 12/07/17 08:01 Dose: 81 mg Atorvastatin Calcium (Lipitor) 10 mg PO HS [facility] Last Admin: 12/06/17 21:26 Dose: 10 mg Clopidogrel Bisulfate (Plavix) 75 mg PO DAILY [facility] Last Admin: 12/07/17 08:02 Dose: 75 mg Enoxaparin Sodium (Lovenox) 40 mg SC DAILY [facility] PRN Reason: Protocol Last Admin: 12/07/17 08:00 Dose: 40 mg Famotidine (Pepcid) 20 mg PO DAILY [facility] Last Admin: 12/06/17 09:13 Dose: 20 mg Lactulose (Enulose) 20 gm PO DAILY PRN PRN Reason: Constipation Latanoprost (Xalatan Opht) 1 drop OU HS [facility] Last Admin: 12/06/17 21:26 Dose: 1 drop Levothyroxine Sodium (Synthroid) 88 mcg PO DAILY@0630 [facility] Last Admin: 12/07/17 06:02 Dose: 88 mcg Magnesium Hydroxide (Milk Of Magnesia) 30 ml PO HS PRN PRN Reason: Constipation Last Admin: 12/06/17 14:23 Dose: 30 ml Ondansetron HCl (Zofran Odt) 8 mg PO Q8 PRN PRN Reason: Nausea/Vomiting Last Admin: 12/03/17 09:07 Dose: 8 mg - Labs Labs: 12/05/17 07:53 12/05/17 07:53 - Constitutional Appears: No Acute Distress - Head Exam Head Exam: NORMAL INSPECTION - Eye Exam Pupil Exam: PERRL - Neurological Exam Neurological Exam: Alert, Awake Neuro motor strength exam: Left Upper Extremity: 5, Right Upper Extremity: 3, Left Lower Extremity: 5, Right Lower Extremity: 3 Additional comments: neurological unchanged from previous examination. Assessment and Plan (1) Ischemic stroke Assessment & Plan: Case discussed with Dr. Guerra, continue all current medical, physical, occupational, and speech therapies. Recommend monitor blood pressure closely, hydration, keep head of bed elevated at least 30 degrees. Status: Acute
[2017-12-07] MEDS: Latanoprost 0.005% Opht SOUTION OU SCH (21:18)
--- NOTE | 2017-12-08 03:15 | PN ---
DATE: 12/07/2017 SUBJECTIVE: The patient is seen today, 12/07/2017. She is not in any cardiopulmonary distress. OBJECTIVE: VITAL SIGNS: Blood pressure 106/62, temperature 98.5, respiratory rate 20, and pulse 72. HEENT: Pupils equal and reactive to light. Normal-appearing mucosa of the conjunctivae, oropharynx, and nasal membrane mucosa. NECK: Supple. No JVD. No carotid bruit. No lymph node. No thyromegaly. CHEST AND LUNGS: Bilateral symmetrical expansion. Good air exchange. No rales, no rhonchi. CARDIOVASCULAR SYSTEM: PMI not localized. S1, S2. No additional sounds. ABDOMEN: Normoactive bowel sounds. No tenderness. No organomegaly. No masses. EXTREMITIES: No cyanosis, no clubbing, no edema. 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 No neurological deficit could be appreciated except for slight right-sided hemiparesis. ASSESSMENT: Cerebrovascular accident, left middle cerebral artery cerebrovascular accident; hypertension; hypercholesterolemia; atherosclerotic cardiovascular disease. PLAN: Continue current medications and physical therapy and occupational therapy. Joanie Calixto MD
[2017-12-08] MEDS: Levothyroxine 88 MCG TAB PO SCH (06:16)
[2017-12-08 06:21] LABS: HEMOGLOBIN 11.5 g/dL (12.0-16.0); MEAN CELL VOLUME 72.9 fl (81.0-99.0); MEAN CORPUSCULAR HEMOGLOBIN 22.1 pg (27.0-31.0); MEAN CORPUSCULAR HGB CONC 30.4 g/dL (33.0-37.0); RBC 5.18 Mil/uL (3.80-5.20); RED CELL DISTRIBUTION WIDTH 15.7 % (11.5-14.5); WHITE BLOOD COUNT 6.3 K/uL (4.8-10.8)
[2017-12-08 06:24] LABS: BLOOD UREA NITROGEN 21 mg/dl (7-17); CALCIUM 9.4 mg/dL (8.4-10.2); GFR AFRICAN-AMERICAN > 60; GFR NON-AFRICAN AMERICAN > 60
[2017-12-08] MEDS: Enoxaparin 40 mg Syringe SC SCH (09:11)
--- NOTE | 2017-12-08 14:19 | CP.PCM.PN ---
Subjective - Date & Time of Evaluation Date of Evaluation: 12/05/17 Time of Evaluation: 12:00 - Subjective Subjective: no acute neck or back pain Objective - Vital Signs/Intake and Output Vital Signs (last 24 hours): Temp Pulse Resp BP Pulse Ox 98.1 F 66 19 125/63 98 12/08/17 10:52 12/08/17 10:52 12/08/17 10:52 12/08/17 10:52 12/08/17 10:00 - Medications Medications: Current Medications Acetaminophen (Tylenol 325mg Tab) 650 mg PO Q6 PRN PRN Reason: Pain scale 1-10 Acetaminophen/Butalbital/Caffeine (Fioricet) 1 tab PO Q4 PRN PRN Reason: Headache Aspirin (Aspirin Chewable) 81 mg PO DAILY [facility] Last Admin: 12/08/17 08:32 Dose: 81 mg Atorvastatin Calcium (Lipitor) 10 mg PO HS [facility] Last Admin: 12/07/17 21:17 Dose: 10 mg Clopidogrel Bisulfate (Plavix) 75 mg PO DAILY [facility] Last Admin: 12/08/17 08:31 Dose: 75 mg Enoxaparin Sodium (Lovenox) 40 mg SC DAILY [facility] PRN Reason: Protocol Last Admin: 12/08/17 09:11 Dose: 40 mg Famotidine (Pepcid) 20 mg PO DAILY [facility] Last Admin: 12/08/17 08:32 Dose: 20 mg Lactulose (Enulose) 20 gm PO DAILY PRN PRN Reason: Constipation Latanoprost (Xalatan Opht) 1 drop OU HS [facility] Last Admin: 12/07/17 21:18 Dose: 1 drop Levothyroxine Sodium (Synthroid) 88 mcg PO DAILY@0630 [facility] Last Admin: 12/08/17 06:16 Dose: 88 mcg Magnesium Hydroxide (Milk Of Magnesia) 30 ml PO HS PRN PRN Reason: Constipation Last Admin: 12/06/17 14:23 Dose: 30 ml Ondansetron HCl (Zofran Odt) 8 mg PO Q8 PRN PRN Reason: Nausea/Vomiting Last Admin: 12/03/17 09:07 Dose: 8 mg - Labs Labs: 12/08/17 05:20 12/08/17 05:20 - Head Exam Head Exam: ATRAUMATIC, NORMAL INSPECTION, NORMOCEPHALIC - Eye Exam Eye Exam: EOMI, Normal appearance, PERRL Pupil Exam: NORMAL ACCOMODATION - ENT Exam ENT Exam: Mucous Membranes Moist, Normal Exam - Neck Exam Neck Exam: Full ROM, Normal Inspection - Respiratory Exam Respiratory Exam: Clear to Ausculation Bilateral, NORMAL BREATHING PATTERN - Cardiovascular Exam Cardiovascular Exam: REGULAR RHYTHM - GI/Abdominal Exam GI & Abdominal Exam: Soft, Normal Bowel Sounds - Rectal Exam Rectal Exam: NORMAL INSPECTION - Exam External exam: NORMAL EXTERNAL EXAM - Back Exam Back Exam: NORMAL INSPECTION - Neurological Exam Neurological Exam: Alert, Awake Neuro motor strength exam: Left Upper Extremity: 3, Right Upper Extremity: 3, Left Lower Extremity: 3, Right Lower Extremity: 3 - Psychiatric Exam Psychiatric exam: Normal Affect, Normal Mood - Skin Skin Exam: Normal Color Assessment and Plan (1) Back pain Status: Acute (2) CHF (congestive heart failure) Status: Acute (3) Dizziness Status: Acute (4) Ischemic stroke Assessment & Plan: plan for physical, occupational, r4ec therapy and speech therapy Status: Acute (5) Osteoarthritis Status: Acute (6) Peripheral edema Status: Acute
--- NOTE | 2017-12-08 14:30 | CP.PCM.PN ---
Subjective - Date & Time of Evaluation Date of Evaluation: 12/08/17 Time of Evaluation: 10:00 - Subjective Subjective: no acute complaints of any pain , participating in therapies Objective - Vital Signs/Intake and Output Vital Signs (last 24 hours): Temp Pulse Resp BP Pulse Ox 98.1 F 66 19 125/63 98 12/08/17 10:52 12/08/17 10:52 12/08/17 10:52 12/08/17 10:52 12/08/17 10:00 - Medications Medications: Current Medications Acetaminophen (Tylenol 325mg Tab) 650 mg PO Q6 PRN PRN Reason: Pain scale 1-10 Acetaminophen/Butalbital/Caffeine (Fioricet) 1 tab PO Q4 PRN PRN Reason: Headache Aspirin (Aspirin Chewable) 81 mg PO DAILY [facility] Last Admin: 12/08/17 08:32 Dose: 81 mg Atorvastatin Calcium (Lipitor) 10 mg PO HS [facility] Last Admin: 12/07/17 21:17 Dose: 10 mg Clopidogrel Bisulfate (Plavix) 75 mg PO DAILY [facility] Last Admin: 12/08/17 08:31 Dose: 75 mg Enoxaparin Sodium (Lovenox) 40 mg SC DAILY [facility] PRN Reason: Protocol Last Admin: 12/08/17 09:11 Dose: 40 mg Famotidine (Pepcid) 20 mg PO DAILY [facility] Last Admin: 12/08/17 08:32 Dose: 20 mg Lactulose (Enulose) 20 gm PO DAILY PRN PRN Reason: Constipation Latanoprost (Xalatan Opht) 1 drop OU HS [facility] Last Admin: 12/07/17 21:18 Dose: 1 drop Levothyroxine Sodium (Synthroid) 88 mcg PO DAILY@0630 [facility] Last Admin: 12/08/17 06:16 Dose: 88 mcg Magnesium Hydroxide (Milk Of Magnesia) 30 ml PO HS PRN PRN Reason: Constipation Last Admin: 12/06/17 14:23 Dose: 30 ml Ondansetron HCl (Zofran Odt) 8 mg PO Q8 PRN PRN Reason: Nausea/Vomiting Last Admin: 12/03/17 09:07 Dose: 8 mg - Labs Labs: 12/08/17 05:20 12/08/17 05:20 - Head Exam Head Exam: ATRAUMATIC, NORMAL INSPECTION, NORMOCEPHALIC - Eye Exam Eye Exam: EOMI, Normal appearance, PERRL Pupil Exam: NORMAL ACCOMODATION - ENT Exam ENT Exam: Mucous Membranes Moist, Normal Exam - Respiratory Exam Respiratory Exam: Clear to Ausculation Bilateral, NORMAL BREATHING PATTERN - Cardiovascular Exam Cardiovascular Exam: REGULAR RHYTHM - GI/Abdominal Exam GI & Abdominal Exam: Soft, Normal Bowel Sounds - Rectal Exam Rectal Exam: NORMAL INSPECTION - Exam External exam: NORMAL EXTERNAL EXAM - Extremities Exam Extremities Exam: Full ROM, Normal Capillary Refill - Back Exam Back Exam: NORMAL INSPECTION - Neurological Exam Neurological Exam: Alert, Awake Neuro motor strength exam: Left Upper Extremity: 3, Right Upper Extremity: 3, Left Lower Extremity: 3, Right Lower Extremity: 3 - Psychiatric Exam Psychiatric exam: Normal Affect, Normal Mood - Skin Skin Exam: Dry, Intact Assessment and Plan (1) Back pain Status: Acute (2) CHF (congestive heart failure) Status: Acute (3) Dizziness Status: Acute (4) Ischemic stroke Assessment & Plan: range of motion, strengthening, transfers and gait training, pt ot rec st for team conference for tomorrow Status: Acute (5) Osteoarthritis Status: Acute (6) Peripheral edema Status: Acute
[2017-12-08] MEDS: Latanoprost 0.005% Opht SOUTION OU SCH (21:15)
[2017-12-09] MEDS: Levothyroxine 88 MCG TAB PO SCH (06:24)
[2017-12-09] MEDS: Enoxaparin 40 mg Syringe SC SCH (08:26)
--- NOTE | 2017-12-09 10:40 | CP.PCM.PN ---
Subjective - Date & Time of Evaluation Date of Evaluation: 12/09/17 Time of Evaluation: 10:40 - Subjective Subjective: Ms. Spence was seen and examined at the bedside. She is alert, oriented, but complains of nausea but no vomiting. She denies any headache, blurred vision, diplopia, headache. She is able to follow simple commands with right side weakness. She is able to participate during her therapy session, but with little motivation. There was no untoward events overnight. Objective - Vital Signs/Intake and Output Vital Signs (last 24 hours): Temp Pulse Resp BP Pulse Ox 97.2 F L 74 18 111/55 L 98 12/09/17 08:35 12/09/17 08:35 12/09/17 08:35 12/09/17 08:35 12/09/17 08:33 - Medications Medications: Current Medications Acetaminophen (Tylenol 325mg Tab) 650 mg PO Q6 PRN PRN Reason: Pain scale 1-10 Acetaminophen/Butalbital/Caffeine (Fioricet) 1 tab PO Q4 PRN PRN Reason: Headache Aspirin (Aspirin Chewable) 81 mg PO DAILY [facility] Last Admin: 12/09/17 08:27 Dose: 81 mg Atorvastatin Calcium (Lipitor) 10 mg PO HS [facility] Last Admin: 12/08/17 21:15 Dose: 10 mg Clopidogrel Bisulfate (Plavix) 75 mg PO DAILY [facility] Last Admin: 12/09/17 08:27 Dose: 75 mg Enoxaparin Sodium (Lovenox) 40 mg SC DAILY [facility] PRN Reason: Protocol Last Admin: 12/09/17 08:26 Dose: 40 mg Famotidine (Pepcid) 20 mg PO DAILY [facility] Last Admin: 12/09/17 08:27 Dose: 20 mg Lactulose (Enulose) 20 gm PO DAILY PRN PRN Reason: Constipation Latanoprost (Xalatan Opht) 1 drop OU HS [facility] Last Admin: 12/08/17 21:15 Dose: 1 drop Levothyroxine Sodium (Synthroid) 88 mcg PO DAILY@0630 [facility] Last Admin: 12/09/17 06:24 Dose: 88 mcg Magnesium Hydroxide (Milk Of Magnesia) 30 ml PO HS PRN PRN Reason: Constipation Last Admin: 12/06/17 14:23 Dose: 30 ml Ondansetron HCl (Zofran Odt) 8 mg PO Q8 PRN PRN Reason: Nausea/Vomiting Last Admin: 12/03/17 09:07 Dose: 8 mg - Labs Labs: 12/08/17 05:20 12/08/17 05:20 - Constitutional Appears: No Acute Distress - Head Exam Head Exam: NORMAL INSPECTION - Eye Exam Pupil Exam: PERRL - Neurological Exam Neurological Exam: Alert, Awake, Oriented x3 Neuro motor strength exam: Left Upper Extremity: 5, Right Upper Extremity: 3, Left Lower Extremity: 5, Right Lower Extremity: 3 Additional comments: neurological unchanged from previous examination. Assessment and Plan (1) Ischemic stroke Assessment & Plan: Case discussed with Dr. Guerra, continue all current medical, physical, occupational, and speech therapies. Recommend monitor blood pressure closely, hydration, keep head of bed elevated at least 30 degrees. If patient behavior deteriorates or will not participate during therapy session, recommend psychology/ psychiatry consult. Status: Acute
--- NOTE | 2017-12-09 12:05 | PSY.TMCNF ---
Nursing - Vital Signs Vital Signs (Last 8 hours): Vital Signs 12/09/17 12/09/17 08:33 08:35 Temperature 97.2 F L 97.2 F L Pulse Rate 74 74 Respiratory 18 18 Rate Blood Pressure 111/55 L 111/55 L O2 Sat by Pulse 98 Oximetry Pain: 0 - Precautions: Precautions: Fall Prevention - Medications/Other Issues Comment: Pt at low nutritional risk. no goals. Follow-up due on 12/11/2017 - Consults Comment: Dr. Lorenz/ Dr. Newton - Toileting Toileting: Supervision - Bladder Management Bladder Pattern: Normal Voiding Method: Toilet Bladder Management: Supervision Frequency of Accidents: 0 - Bowel Management Bowel Pattern: Normal Bowel Management: Supervision Frequency of Accidents: 0 - Transfers Transfers: Supervision - ADL's ADL's: Supervision - Patient/Family Teaching Comments: Care post CVA and safety precautions - Goals/Time Frame Comments: Per multidisciplinary care plan and goals - Provider Provider: Stephanie LOPEZN RN CRRN Physical Therapy - Bed Mobility Bed Mobility: Supervision, Verbal Cues - Transfers Wheelchair to Mat: Verbal Cues, Contact Guard, Minimal Assistance Sit to Stand: Supervision, Verbal Cues Comment: difficulty coordinating SPT; requires cues for sequencing and problem solving - Ambulation Level of Assistance: Supervision, Verbal Cues Distance (ft.): 150 Assistive Devices: Rolling Walker - Stair Negotiation Stairs: Level of Assistance: Supervision, Verbal Cues, Minimal Assistance Stairs: Assistive Devices: Left Handrail, Right Handrail - Standing Balance Static Stand: Supervision Dynamic Stand: Contact Guard Assist, Minimal Assistance - Pain Pain (assessed during therapy session): 2 Comment: reports arthritic pain in BLE at all times - Insight/Carryover Insight/Carryover: Fair - Patient/Family Education Comment: safety, mobility, POC, therapy schedule, use of call martinez, stroke recovery, importance of activity, importance of mobility, healthy life-style - Assessment/Plan Assessment: Pt requires verbal cues for encouragement to participate in recreation therapy sessions. Pt is agreeable; however, requires mod-max verbal cues for initiation and motivation to complete tasks. Pt requires max A throughout leisure tasks as pt presents with decrease initiation, extended time to complete task, decrease direction following, decrease problem solving, and decrease carryover to utilize R hand. Pt presents with decrease arousal level and requires redirection to leisure activities. Pt has participated in modified soledad card task, 5 second rule task, go-fish card task, and connect four task. Pt would benefit from participating in recreation therapy sessions if agreeable - Goals Timeframe: 7 days Goals: mod I with bed/mat mobility. mod I with transfers. S to ambulate 150 feet with RW. S to negotiate 4 steps with single rail - Provider Therapist: M License Number: [id number] Occupational Therapy - Arousal/Attention/Orientation Patient Orientation: Person, Place - ADL/IADL Self Feeding: Supervision, Verbal Cues, Set-up Help Grooming: Supervision, Verbal Cues, Set-up Help Bathing-Upper Extremity: Verbal Cues, Set-up Help, Minimal Assistance Bathing-Lower Extremity: Verbal Cues, Set-up Help, Minimal Assistance Dressing-Upper Extremity: Supervision, Verbal Cues, Set-up Help Dressing-Lower Extremity: Verbal Cues, Set-up Help, Minimal Assistance Homemaking: Verbal Cues, Set-up Help, Minimal Assistance Comment: -pt limited by vision, RUE motor control, impaired standing balance and impaired safety awareness & depressed mood - Sitting Balance Static Sitting: Supervision Dynamic Sitting: Requires supervision Comment: seated un supported - Transfers Wheelchair to Bed Transfers: Verbal Cues, Set-up Help, Contact Guard, Minimal Assistance Toilet Transfers: Set-up Help, Contact Guard, Minimal Assistance Comment: shower bench transfers: Min assist/CG and verbal cues for hand placement, reach/step back safely - Wheelchair Management Level of Assistance: Not Applicable - Upper Extremity Status Right Upper Extremity Comment: AROM is WFLS, decreased coordination/dexterity and motor planning. Left Upper Extremity Comment: AROM is WFLS, strength 4/5 - Pain Pain (assessed during therapy session): 2 Comment: reports arthritic pain in BLE at all times - Insight/Carryover Insight/Carryover: Fair - Patient/Family Education Comment: safety, mobility, POC, therapy schedule, use of call martinez, stroke recovery, importance of activity, importance of mobility, healthy life-style - Assessment/Plan Assessment: Pt requires verbal cues for encouragement to participate in recreation therapy sessions. Pt is agreeable; however, requires mod-max verbal cues for initiation and motivation to complete tasks. Pt requires max A throughout leisure tasks as pt presents with decrease initiation, extended time to complete task, decrease direction following, decrease problem solving, and decrease carryover to utilize R hand. Pt presents with decrease arousal level and requires redirection to leisure activities. Pt has participated in modified soledad card task, 5 second rule task, go-fish card task, and connect four task. Pt would benefit from participating in recreation therapy sessions if agreeable - Goals Timeframe: 7 days Goals: mod I with bed/mat mobility. mod I with transfers. S to ambulate 150 feet with RW. S to negotiate 4 steps with single rail - Provider Therapist: Tracie Preston OTR/L Speech Therapy - Consult Information Patient on Program: Yes Medical Diagnosis: CVA Treatment Diagnosis: moderate cognitive deficits - Assessment Problem Solving Impairment: Moderate Memory Impairment: Moderate - Plan Assessment: Pt requires verbal cues for encouragement to participate in recreation therapy sessions. Pt is agreeable; however, requires mod-max verbal cues for initiation and motivation to complete tasks. Pt requires max A throughout leisure tasks as pt presents with decrease initiation, extended time to complete task, decrease direction following, decrease problem solving, and decrease carryover to utilize R hand. Pt presents with decrease arousal level and requires redirection to leisure activities. Pt has participated in modified soledad card task, 5 second rule task, go-fish card task, and connect four task. Pt would benefit from participating in recreation therapy sessions if agreeable - Provider Therapist: Ivy Gamble License Number: [id number] Recreational Therapy - Participation Participation: Participates in Individual and/or Group Sessions - Attendance Attendance: Daily - Activities Leisure Activities: Cards and Games - Socialization Level of Socialization: Initiates/interacts freely with care givers and peer - Diversional Time Diversional Time: television - Assessment Assessment/Plan: Pt requires verbal cues for encouragement to participate in recreation therapy sessions. Pt is agreeable; however, requires mod-max verbal cues for initiation and motivation to complete tasks. Pt requires max A throughout leisure tasks as pt presents with decrease initiation, extended time to complete task, decrease direction following, decrease problem solving, and decrease carryover to utilize R hand. Pt presents with decrease arousal level and requires redirection to leisure activities. Pt has participated in modified soledad card task, 5 second rule task, go-fish card task, and connect four task. Pt would benefit from participating in recreation therapy sessions if agreeable Problems Currently Limiting Participation: decrease leisure awareness level, decrease activity tolerance level, decrease command following, decrease insight of deficits Goals and Time Frame: Pt will be encouraged to participate in 1:1 and group recreation therapy sessions 3-5x week to improve command following, direction following, leisure awareness level, arousal level, and activity tolerance level. - Provider Therapist: Nanci Aguilar, [employer] #[id number] Nutrition - Current Diet Current Diet/ Supplement/ Feedings: Heart healthy diet - Appetite Percent Meal Consumed: 50-74% - Comments Comments: Care post CVA and safety precautions - Assessment/Goals/Time Frame Assessment/Goals/Time Frame: Pt at low nutritional risk. no goals. Follow-up due on 12/11/2017 - Provider Provider: Diane Márquez RD Case Management - Psychosocial Assessment Support Systems: Lives in finished basement apartment alone;. Granddaughter Kelsey [phone] resides on main level Psychological Interventions/Needs: Pt is alert and oriented, but with memory impairments Discharge Concerns: Pt may require additional assistance upon discharge Patient/Family Meeting: CM met with pt and rehab team; Spoke with granddaughter with pt's consent Intervention/Goal/Outcome:: 1. Tentative d/c date: TBD will reteam based on pt' s progress. Pt's LAD 12/04/17 will provide updates at that time 2. Will coordinate DME as needed - Discharge Plan Discharge Plan: Home with services - Provider Provider: TAJ Germain, [facility] License Number: [id number] Rehabilitation Plan - Treatment Plan Treatment Plan: Physical Therapy, Occupational Therapy, Speech, Dietary, Patient /Family Education - Recommendation Recommendation: Physical Therapy, Occupational Therapy, Speech, Dietary, Patient /Family Education - Discharge Plan Discharge to: Home (December 20)
--- NOTE | 2017-12-09 12:52 | CP.PCM.PN ---
Subjective - Date & Time of Evaluation Date of Evaluation: 12/09/17 Time of Evaluation: 12:00 - Subjective Subjective: patient is doing fine , no acute complaints at present Objective - Vital Signs/Intake and Output Vital Signs (last 24 hours): Temp Pulse Resp BP Pulse Ox 97.2 F L 74 18 111/55 L 98 12/09/17 08:35 12/09/17 08:35 12/09/17 08:35 12/09/17 08:35 12/09/17 08:33 - Medications Medications: Current Medications Acetaminophen (Tylenol 325mg Tab) 650 mg PO Q6 PRN PRN Reason: Pain scale 1-10 Acetaminophen/Butalbital/Caffeine (Fioricet) 1 tab PO Q4 PRN PRN Reason: Headache Aspirin (Aspirin Chewable) 81 mg PO DAILY [facility] Last Admin: 12/09/17 08:27 Dose: 81 mg Atorvastatin Calcium (Lipitor) 10 mg PO HS [facility] Last Admin: 12/08/17 21:15 Dose: 10 mg Clopidogrel Bisulfate (Plavix) 75 mg PO DAILY [facility] Last Admin: 12/09/17 08:27 Dose: 75 mg Enoxaparin Sodium (Lovenox) 40 mg SC DAILY [facility] PRN Reason: Protocol Last Admin: 12/09/17 08:26 Dose: 40 mg Famotidine (Pepcid) 20 mg PO DAILY [facility] Last Admin: 12/09/17 08:27 Dose: 20 mg Lactulose (Enulose) 20 gm PO DAILY PRN PRN Reason: Constipation Latanoprost (Xalatan Opht) 1 drop OU HS [facility] Last Admin: 12/08/17 21:15 Dose: 1 drop Levothyroxine Sodium (Synthroid) 88 mcg PO DAILY@0630 [facility] Last Admin: 12/09/17 06:24 Dose: 88 mcg Magnesium Hydroxide (Milk Of Magnesia) 30 ml PO HS PRN PRN Reason: Constipation Last Admin: 12/06/17 14:23 Dose: 30 ml Ondansetron HCl (Zofran Odt) 8 mg PO Q8 PRN PRN Reason: Nausea/Vomiting Last Admin: 12/03/17 09:07 Dose: 8 mg - Labs Labs: 12/08/17 05:20 12/08/17 05:20 - Head Exam Head Exam: ATRAUMATIC, NORMAL INSPECTION, NORMOCEPHALIC - Eye Exam Eye Exam: EOMI, Normal appearance, PERRL Pupil Exam: NORMAL ACCOMODATION - ENT Exam ENT Exam: Mucous Membranes Moist, Normal Exam - Neck Exam Neck Exam: Full ROM, Normal Inspection - Respiratory Exam Respiratory Exam: Clear to Ausculation Bilateral, NORMAL BREATHING PATTERN - Cardiovascular Exam Cardiovascular Exam: REGULAR RHYTHM - GI/Abdominal Exam GI & Abdominal Exam: Soft, Normal Bowel Sounds - Rectal Exam Rectal Exam: NORMAL INSPECTION - Exam External exam: NORMAL EXTERNAL EXAM - Extremities Exam Extremities Exam: Full ROM, Normal Capillary Refill, Normal Inspection - Back Exam Back Exam: NORMAL INSPECTION - Neurological Exam Neurological Exam: Alert, Awake Neuro motor strength exam: Left Upper Extremity: 4, Right Upper Extremity: 4, Left Lower Extremity: 3, Right Lower Extremity: 4 - Psychiatric Exam Psychiatric exam: Normal Affect, Normal Mood - Skin Skin Exam: Dry, Intact Assessment and Plan (1) Back pain Status: Acute (2) CHF (congestive heart failure) Status: Acute (3) Dizziness Status: Acute (4) Ischemic stroke Assessment & Plan: plan for PT, Ot rec and St status post team conference Dc December 20 Status: Acute (5) Osteoarthritis Status: Acute (6) Peripheral edema Status: Acute
[2017-12-09] MEDS: Latanoprost 0.005% Opht SOUTION OU SCH (21:20)
--- NOTE | 2017-12-10 00:05 | PN ---
DATE: 12/08/2017 SUBJECTIVE: The patient was seen on 12/08/2017. She was not in any cardiopulmonary distress. The patient was seen during speech therapy. PHYSICAL EXAMINATION: VITAL SIGNS: Blood pressure was 131/60, temperature 98.1, pulse 62, and respiratory rate 20. HEENT: Pupils equal and reactive to light. Normal-appearing mucosa of the conjunctivae, oropharynx, and nasal membrane mucosa. NECK: Supple. No JVD. No carotid bruits. No lymph node. No thyromegaly. CHEST AND LUNGS: Bilateral symmetrical expansion. Good air exchange. No rales. No rhonchi. CARDIOVASCULAR: PMI not localized. S1 and S2. No additional sounds. ABDOMEN: Normoactive bowel sounds. No tenderness. No organomegaly. No masses. EXTREMITIES: No cyanosis. No clubbing. No edema. 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 The patient has right-sided weakness with unsteady gait. 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 2. Hypertension. 3. Hypercholesterolemia. 4. Hypothyroidism. PLAN: Continue current medications and follow Neurology recommendations. Joanie Calixto MD
[2017-12-10] MEDS: Levothyroxine 88 MCG TAB PO SCH (06:11)
[2017-12-10] MEDS: Enoxaparin 40 mg Syringe SC SCH (08:27)
--- NOTE | 2017-12-10 12:16 | CP.PCM.PN ---
Subjective - Date & Time of Evaluation Date of Evaluation: 12/10/17 Time of Evaluation: 12:16 - Subjective Subjective: Ms. Spence was seen and examined at the therapy room. She is alert, oriented, but complains of nausea but no vomiting. She denies any headache, blurred vision , diplopia, headache. She is able to follow simple commands with right side weakness. She is able to participate during her therapy session. There was no untoward events overnight. Objective - Vital Signs/Intake and Output Vital Signs (last 24 hours): Temp Pulse Resp BP Pulse Ox 98.2 F 60 20 108/68 100 12/10/17 07:30 12/10/17 07:30 12/10/17 07:30 12/10/17 07:30 12/09/17 20:30 - Medications Medications: Current Medications Acetaminophen (Tylenol 325mg Tab) 650 mg PO Q6 PRN PRN Reason: Pain scale 1-10 Acetaminophen/Butalbital/Caffeine (Fioricet) 1 tab PO Q4 PRN PRN Reason: Headache Aspirin (Aspirin Chewable) 81 mg PO DAILY [facility] Last Admin: 12/10/17 08:26 Dose: 81 mg Atorvastatin Calcium (Lipitor) 10 mg PO HS [facility] Last Admin: 12/09/17 21:20 Dose: 10 mg Clopidogrel Bisulfate (Plavix) 75 mg PO DAILY [facility] Last Admin: 12/10/17 08:27 Dose: 75 mg Enoxaparin Sodium (Lovenox) 40 mg SC DAILY [facility] PRN Reason: Protocol Last Admin: 12/10/17 08:27 Dose: 40 mg Famotidine (Pepcid) 20 mg PO DAILY [facility] Last Admin: 12/10/17 08:26 Dose: 20 mg Lactulose (Enulose) 20 gm PO DAILY PRN PRN Reason: Constipation Latanoprost (Xalatan Opht) 1 drop OU HS [facility] Last Admin: 12/09/17 21:20 Dose: 1 drop Levothyroxine Sodium (Synthroid) 88 mcg PO DAILY@0630 [facility] Last Admin: 12/10/17 06:11 Dose: 88 mcg Magnesium Hydroxide (Milk Of Magnesia) 30 ml PO HS PRN PRN Reason: Constipation Last Admin: 12/06/17 14:23 Dose: 30 ml Ondansetron HCl (Zofran Odt) 8 mg PO Q8 PRN PRN Reason: Nausea/Vomiting Last Admin: 12/03/17 09:07 Dose: 8 mg - Labs Labs: 12/08/17 05:20 12/08/17 05:20 - Constitutional Appears: No Acute Distress - Head Exam Head Exam: NORMAL INSPECTION - Neurological Exam Neurological Exam: Alert, Awake Neuro motor strength exam: Left Upper Extremity: 5, Right Upper Extremity: 3, Left Lower Extremity: 5, Right Lower Extremity: 3 Additional comments: neurological unchanged from previous examination. Assessment and Plan (1) Ischemic stroke Assessment & Plan: Case discussed with Dr. Guerra, continue all current medical, physical, occupational, and speech therapies. Recommend monitor blood pressure closely, hydration, keep head of bed elevated at least 30 degrees. Status: Acute
[2017-12-10] MEDS: Magnesium Hydroxide Susp 30 ml UD PO PRN (19:46)
[2017-12-10] MEDS: Latanoprost 0.005% Opht SOUTION OU SCH (21:25)
[2017-12-11] MEDS: Levothyroxine 88 MCG TAB PO SCH (06:02)
[2017-12-11 06:57] LABS: HEMOGLOBIN 11.1 g/dL (12.0-16.0); MEAN CELL VOLUME 72.7 fl (81.0-99.0); MEAN CORPUSCULAR HEMOGLOBIN 22.5 pg (27.0-31.0); RBC 4.93 Mil/uL (3.80-5.20); RED CELL DISTRIBUTION WIDTH 15.7 % (11.5-14.5); WHITE BLOOD COUNT 7.2 K/uL (4.8-10.8)
[2017-12-11 07:05] LABS: BLOOD UREA NITROGEN 22 mg/dl (7-17); CALCIUM 9.4 mg/dL (8.4-10.2); GFR AFRICAN-AMERICAN > 60; GFR NON-AFRICAN AMERICAN > 60
[2017-12-11] MEDS: Enoxaparin 40 mg Syringe SC SCH (08:12)
--- NOTE | 2017-12-11 11:11 | CP.PCM.PN ---
Subjective - Date & Time of Evaluation Date of Evaluation: 12/11/17 Time of Evaluation: 11:10 - Subjective Subjective: Ms. Spence was seen and examined at the therapy room. She is alert, oriented, but complains of nausea but no vomiting. She denies any headache, blurred vision , diplopia, headache. She is able to follow simple commands with right side weakness. She is able to participate during her therapy session. There was no untoward events overnight. Objective - Vital Signs/Intake and Output Vital Signs (last 24 hours): Temp Pulse Resp BP Pulse Ox 98.1 F 65 20 128/70 100 12/10/17 19:45 12/10/17 19:45 12/10/17 19:45 12/10/17 19:45 12/10/17 19:45 - Medications Medications: Current Medications Acetaminophen (Tylenol 325mg Tab) 650 mg PO Q6 PRN PRN Reason: Pain scale 1-10 Acetaminophen/Butalbital/Caffeine (Fioricet) 1 tab PO Q4 PRN PRN Reason: Headache Aspirin (Aspirin Chewable) 81 mg PO DAILY [facility] Last Admin: 12/11/17 08:12 Dose: 81 mg Atorvastatin Calcium (Lipitor) 10 mg PO HS [facility] Last Admin: 12/10/17 21:24 Dose: 10 mg Clopidogrel Bisulfate (Plavix) 75 mg PO DAILY [facility] Last Admin: 12/11/17 08:12 Dose: 75 mg Enoxaparin Sodium (Lovenox) 40 mg SC DAILY [facility] PRN Reason: Protocol Last Admin: 12/11/17 08:12 Dose: 40 mg Famotidine (Pepcid) 20 mg PO DAILY [facility] Last Admin: 12/11/17 08:11 Dose: 20 mg Lactulose (Enulose) 20 gm PO DAILY PRN PRN Reason: Constipation Latanoprost (Xalatan Opht) 1 drop OU HS [facility] Last Admin: 12/10/17 21:25 Dose: 1 drop Levothyroxine Sodium (Synthroid) 88 mcg PO DAILY@0630 [facility] Last Admin: 12/11/17 06:02 Dose: 88 mcg Magnesium Hydroxide (Milk Of Magnesia) 30 ml PO HS PRN PRN Reason: Constipation Last Admin: 12/10/17 19:46 Dose: 30 ml Ondansetron HCl (Zofran Odt) 8 mg PO Q8 PRN PRN Reason: Nausea/Vomiting Last Admin: 12/03/17 09:07 Dose: 8 mg - Labs Labs: 12/11/17 06:42 12/11/17 06:42 - Constitutional Appears: No Acute Distress - Head Exam Head Exam: NORMAL INSPECTION - Eye Exam Pupil Exam: PERRL - Neurological Exam Neuro motor strength exam: Left Upper Extremity: 5, Right Upper Extremity: 4, Left Lower Extremity: 5, Right Lower Extremity: 4 Additional comments: neurological unchanged from previous examination Assessment and Plan (1) Ischemic stroke Assessment & Plan: Case discussed with Dr. Guerra, continue all current medical, physical, occupational, and speech therapies. Recommend monitor blood pressure closely, hydration, keep head of bed elevated at least 30 degrees. Status: Acute
--- NOTE | 2017-12-11 12:38 | CP.PCM.PN ---
Subjective - Date & Time of Evaluation Date of Evaluation: 12/11/17 Time of Evaluation: 10:00 - Subjective Subjective: Patient was seen and examined in the hallway during physical therapy. She reports much improvement since admission. She denies any acute problems currently and relate her gait is better. Patient denies chest pain, shortness of breath, fevers, chills, nausea, vomiting, diarrhea, headache. All of the patient's and/or family's questions were answered at the bedside. Objective - Vital Signs/Intake and Output Vital Signs (last 24 hours): Temp Pulse Resp BP Pulse Ox 98.1 F 65 20 128/70 100 12/10/17 19:45 12/10/17 19:45 12/10/17 19:45 12/10/17 19:45 12/10/17 19:45 - Medications Medications: Current Medications Acetaminophen (Tylenol 325mg Tab) 650 mg PO Q6 PRN PRN Reason: Pain scale 1-10 Acetaminophen/Butalbital/Caffeine (Fioricet) 1 tab PO Q4 PRN PRN Reason: Headache Aspirin (Aspirin Chewable) 81 mg PO DAILY [facility] Last Admin: 12/11/17 08:12 Dose: 81 mg Atorvastatin Calcium (Lipitor) 10 mg PO HS [facility] Last Admin: 12/10/17 21:24 Dose: 10 mg Clopidogrel Bisulfate (Plavix) 75 mg PO DAILY [facility] Last Admin: 12/11/17 08:12 Dose: 75 mg Enoxaparin Sodium (Lovenox) 40 mg SC DAILY [facility] PRN Reason: Protocol Last Admin: 12/11/17 08:12 Dose: 40 mg Famotidine (Pepcid) 20 mg PO DAILY [facility] Last Admin: 12/11/17 08:11 Dose: 20 mg Lactulose (Enulose) 20 gm PO DAILY PRN PRN Reason: Constipation Latanoprost (Xalatan Opht) 1 drop OU HS [facility] Last Admin: 12/10/17 21:25 Dose: 1 drop Levothyroxine Sodium (Synthroid) 88 mcg PO DAILY@0630 [facility] Last Admin: 12/11/17 06:02 Dose: 88 mcg Magnesium Hydroxide (Milk Of Magnesia) 30 ml PO HS PRN PRN Reason: Constipation Last Admin: 12/10/17 19:46 Dose: 30 ml Ondansetron HCl (Zofran Odt) 8 mg PO Q8 PRN PRN Reason: Nausea/Vomiting Last Admin: 12/03/17 09:07 Dose: 8 mg - Labs Labs: 12/11/17 06:42 12/11/17 06:42 - Additional Findings Additional findings: Physical exam: Constitutional- cooperative, awake, alert Head- NCAT, PERRL Eye- PERRL, EOMI ENT- normal exam, MMM. Neck- normal inspection, supple, no JVD Respiratory- CTAB, no wheezes rales rhonchi Cardiovascular- RRR, +S1, +S2 no MRG GI/Abdominal- normal bowel sounds, soft, no mass, no hsm Skin- warm, dry Extremities Exam- normal capillary refill, normal inspection Neurological Exam- + right sided weakness with unsteady gait. alert, awake, oriented Psych- normal mood, normal affect Assessment and Plan - Assessment and Plan (Free Text) Plan: ASSESSMENT/PLAN This is 77 year old female with acute left MCA CVA admitted to rehab for continued PT/OT/ST. 1) Left MCA CVA - Continue PT/OT/ST in rehab - Physiatry consultation appreciated - Patient improving - ASA 81 mg po daily - Plavix 75 mg po daily 2) Essential hypertension hx - controlled without medications 3) Hypercholesterolemia - chronic 4) Hypothyroidism - continue levothyroxine 5) Adjustment disorder - Psychology consultation
--- NOTE | 2017-12-11 13:02 | CP.PCM.PN ---
Subjective - Date & Time of Evaluation Date of Evaluation: 12/11/17 Time of Evaluation: 10:00 - Subjective Subjective: no acute neck or back pain Objective - Vital Signs/Intake and Output Vital Signs (last 24 hours): Temp Pulse Resp BP Pulse Ox 98.1 F 65 20 128/70 100 12/10/17 19:45 12/10/17 19:45 12/10/17 19:45 12/10/17 19:45 12/10/17 19:45 - Medications Medications: Current Medications Acetaminophen (Tylenol 325mg Tab) 650 mg PO Q6 PRN PRN Reason: Pain scale 1-10 Acetaminophen/Butalbital/Caffeine (Fioricet) 1 tab PO Q4 PRN PRN Reason: Headache Aspirin (Aspirin Chewable) 81 mg PO DAILY [facility] Last Admin: 12/11/17 08:12 Dose: 81 mg Atorvastatin Calcium (Lipitor) 10 mg PO HS [facility] Last Admin: 12/10/17 21:24 Dose: 10 mg Clopidogrel Bisulfate (Plavix) 75 mg PO DAILY [facility] Last Admin: 12/11/17 08:12 Dose: 75 mg Enoxaparin Sodium (Lovenox) 40 mg SC DAILY [facility] PRN Reason: Protocol Last Admin: 12/11/17 08:12 Dose: 40 mg Famotidine (Pepcid) 20 mg PO DAILY [facility] Last Admin: 12/11/17 08:11 Dose: 20 mg Lactulose (Enulose) 20 gm PO DAILY PRN PRN Reason: Constipation Latanoprost (Xalatan Opht) 1 drop OU HS [facility] Last Admin: 12/10/17 21:25 Dose: 1 drop Levothyroxine Sodium (Synthroid) 88 mcg PO DAILY@0630 [facility] Last Admin: 12/11/17 06:02 Dose: 88 mcg Magnesium Hydroxide (Milk Of Magnesia) 30 ml PO HS PRN PRN Reason: Constipation Last Admin: 12/10/17 19:46 Dose: 30 ml Ondansetron HCl (Zofran Odt) 8 mg PO Q8 PRN PRN Reason: Nausea/Vomiting Last Admin: 12/03/17 09:07 Dose: 8 mg - Labs Labs: 12/11/17 06:42 12/11/17 06:42 - Head Exam Head Exam: ATRAUMATIC, NORMAL INSPECTION, NORMOCEPHALIC - Eye Exam Eye Exam: EOMI, Normal appearance, PERRL Pupil Exam: NORMAL ACCOMODATION, PERRL - ENT Exam ENT Exam: Mucous Membranes Moist, Normal Exam - Neck Exam Neck Exam: Normal Inspection - Respiratory Exam Respiratory Exam: Clear to Ausculation Bilateral, NORMAL BREATHING PATTERN - Cardiovascular Exam Cardiovascular Exam: REGULAR RHYTHM - GI/Abdominal Exam GI & Abdominal Exam: Soft, Normal Bowel Sounds - Rectal Exam Rectal Exam: NORMAL INSPECTION - Exam External exam: NORMAL EXTERNAL EXAM - Extremities Exam Extremities Exam: Full ROM, Normal Capillary Refill - Back Exam Back Exam: NORMAL INSPECTION - Neurological Exam Neurological Exam: Alert, Awake Neuro motor strength exam: Left Upper Extremity: 3, Left Lower Extremity: 3 - Psychiatric Exam Psychiatric exam: Normal Affect, Normal Mood - Skin Skin Exam: Dry, Intact Assessment and Plan (1) Back pain Status: Acute (2) CHF (congestive heart failure) Status: Acute (3) Dizziness Status: Acute (4) Ischemic stroke Assessment & Plan: plan for physical, occupational,rec and speech therapy Status: Acute (5) Osteoarthritis Status: Acute (6) Peripheral edema Status: Acute
[2017-12-11] MEDS: Magnesium Hydroxide Susp 30 ml UD PO PRN (18:27)
[2017-12-11] MEDS: Latanoprost 0.005% Opht SOUTION OU SCH (21:03)
[2017-12-12] MEDS: Levothyroxine 88 MCG TAB PO SCH (06:23)
[2017-12-12] MEDS: Enoxaparin 40 mg Syringe SC SCH (08:34)
[2017-12-12] MEDS: Latanoprost 0.005% Opht SOUTION OU SCH (21:02)
[2017-12-13] MEDS: Levothyroxine 88 MCG TAB PO SCH (06:23)
[2017-12-13] MEDS: Enoxaparin 40 mg Syringe SC SCH (08:18)
[2017-12-13] MEDS: Latanoprost 0.005% Opht SOUTION OU SCH (21:03)
[2017-12-14] MEDS: Levothyroxine 88 MCG TAB PO SCH (06:24)
[2017-12-14 06:25] LABS: HEMOGLOBIN 10.9 g/dL (12.0-16.0); MEAN CELL VOLUME 73.1 fl (81.0-99.0); MEAN CORPUSCULAR HEMOGLOBIN 22.3 pg (27.0-31.0); MEAN CORPUSCULAR HGB CONC 30.5 g/dL (33.0-37.0); RBC 4.9 Mil/uL (3.80-5.20); WHITE BLOOD COUNT 7.6 K/uL (4.8-10.8)
[2017-12-14 06:42] LABS: BLOOD UREA NITROGEN 19 mg/dl (7-17); CALCIUM 9.5 mg/dL (8.4-10.2); GFR AFRICAN-AMERICAN > 60; GFR NON-AFRICAN AMERICAN > 60
--- NOTE | 2017-12-14 08:37 | CP.PCM.CON ---
History of Present Illness - History of Present Illness History of Present Illness: Pt is a 77 year old female admitted to [facility] following a CVA. Pt reported a history of HTN and cholesterol. See medical record for complete medical history and medication list. Social History: pt lives with her grandwm in [place]. She reported that her grandwm assists with shopping and cooking, cleaning. Pt is . She was for 30+ years. Pt had five children, two are still living and 7 grandchildren. Pt reported positive relationships with her two living chidlren and family. 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 Psych history denied, pt denied a history of alc/sub abuse. Pt discussed initial depression with her CVA , and physical limitations. Pt spoke of her improved mood with gains and recovery. Education and counseling provided to reduce distress. MSE: pt alert, not oriented to year, not date, able to state day and month, affect constricted, mood dysphoric over status, no si no hi ideation. Dx: Adjustment dx with depression plan: Continued Supportive therapy Past Patient History - Past Medical History & Family History Past Medical History?: Yes - Past Social History Smoking Status: Former Smoker - CARDIAC Hx Congestive Heart Failure: Yes Hx Hypercholesterolemia: Yes Hx Hypertension: Yes - NEUROLOGICAL HX Cerebrovascular Accident: Yes (As per patient had mild CVA) Other/Comment: As per Patient she had a mild stroke years ago, patient not sure what year. - ENDOCRINE/METABOLIC Other/Comment: Pre diabetic. 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 - HEMATOLOGICAL/ONCOLOGICAL Hx AIDS: No Hx Human Immunodeficiency Virus (HIV): No - MUSCULOSKELETAL/RHEUMATOLOGICAL Hx Falls: Yes - GENITOURINARY/GYNECOLOGICAL Other/Comment: fibroids - PSYCHIATRIC Hx Substance Use: No - SURGICAL HISTORY Hx Surgeries: No Other/Comment: bilateral tubal ligation - ANESTHESIA Hx Anesthesia: Yes Hx Anesthesia Reactions: No Meds Allergies/Adverse Reactions: Allergies Allergy/AdvReac Type Severity Reaction Status Date / Time No Known Allergies Allergy Verified 12/01/17 15:19 - Medications Medications: Current Medications Acetaminophen (Tylenol 325mg Tab) 650 mg PO Q6 PRN PRN Reason: Pain scale 1-10 Acetaminophen/Butalbital/Caffeine (Fioricet) 1 tab PO Q4 PRN PRN Reason: Headache Aspirin (Aspirin Chewable) 81 mg PO DAILY [facility] Last Admin: 12/13/17 08:17 Dose: 81 mg Atorvastatin Calcium (Lipitor) 10 mg PO HS [facility] Last Admin: 12/13/17 21:00 Dose: 10 mg Clopidogrel Bisulfate (Plavix) 75 mg PO DAILY [facility] Last Admin: 12/13/17 10:30 Dose: 75 mg Enoxaparin Sodium (Lovenox) 40 mg SC DAILY [facility] PRN Reason: Protocol Last Admin: 12/13/17 08:18 Dose: 40 mg Famotidine (Pepcid) 20 mg PO DAILY [facility] Last Admin: 12/13/17 08:17 Dose: 20 mg Lactulose (Enulose) 20 gm PO DAILY PRN PRN Reason: Constipation Latanoprost (Xalatan Opht) 1 drop OU HS [facility] Last Admin: 12/13/17 21:03 Dose: 1 drop Levothyroxine Sodium (Synthroid) 88 mcg PO DAILY@0630 [facility] Last Admin: 12/14/17 06:24 Dose: 88 mcg Magnesium Hydroxide (Milk Of Magnesia) 30 ml PO HS PRN PRN Reason: Constipation Last Admin: 12/11/17 18:27 Dose: 30 ml Ondansetron HCl (Zofran Odt) 8 mg PO Q8 PRN PRN Reason: Nausea/Vomiting Last Admin: 12/03/17 09:07 Dose: 8 mg Results - Vital Signs Recent Vital Signs: Last Vital Signs Temp 98.1 F 12/14/17 08:04 Pulse 62 12/14/17 08:04 Resp 18 12/14/17 08:04 BP 113/71 12/14/17 08:04 Pulse Ox 99 12/14/17 08:04 - Labs Result Diagrams: 12/14/17 05:20 12/14/17 05:20 Labs: Laboratory Results - last 24 hr 12/14/17 12/14/17 05:20 05:20 WBC 7.6 RBC 4.90 Hgb 10.9 L Hct 35.8 MCV 73.1 L MCH 22.3 L MCHC 30.5 L RDW 16.0 H Plt Count 370 Sodium 139 Potassium 4.4 Chloride 105 Carbon Dioxide 29 Anion Gap 9 L BUN 19 H Creatinine 0.8 Est GFR ( Amer) > 60 Est GFR (Non-Af Amer) > 60 Random Glucose 104 Calcium 9.5
[2017-12-14] MEDS: Enoxaparin 40 mg Syringe SC SCH (09:10)
--- NOTE | 2017-12-14 09:57 | CP.PCM.PN ---
Subjective - Date & Time of Evaluation Date of Evaluation: 12/14/17 Time of Evaluation: 09:57 - Subjective Subjective: Ms. Spence was seen and examined at the therapy room. She is alert, oriented. She denies any headache, blurred vision, diplopia, dizziness. She is able to follow simple commands with right side weakness. She still needs minimal assistance with feeding. She is able to participate during her therapy session. There was no untoward events overnight. Objective - Vital Signs/Intake and Output Vital Signs (last 24 hours): Temp Pulse Resp BP Pulse Ox 98.1 F 62 18 113/71 99 12/14/17 08:04 12/14/17 08:04 12/14/17 08:04 12/14/17 08:04 12/14/17 08:04 - Medications Medications: Current Medications Acetaminophen (Tylenol 325mg Tab) 650 mg PO Q6 PRN PRN Reason: Pain scale 1-10 Acetaminophen/Butalbital/Caffeine (Fioricet) 1 tab PO Q4 PRN PRN Reason: Headache Aspirin (Aspirin Chewable) 81 mg PO DAILY [facility] Last Admin: 12/14/17 09:10 Dose: 81 mg Atorvastatin Calcium (Lipitor) 10 mg PO HS [facility] Last Admin: 12/13/17 21:00 Dose: 10 mg Clopidogrel Bisulfate (Plavix) 75 mg PO DAILY [facility] Last Admin: 12/14/17 09:10 Dose: 75 mg Enoxaparin Sodium (Lovenox) 40 mg SC DAILY [facility] PRN Reason: Protocol Last Admin: 12/14/17 09:10 Dose: 40 mg Famotidine (Pepcid) 20 mg PO DAILY [facility] Last Admin: 12/14/17 09:10 Dose: 20 mg Lactulose (Enulose) 20 gm PO DAILY PRN PRN Reason: Constipation Latanoprost (Xalatan Opht) 1 drop OU HS [facility] Last Admin: 12/13/17 21:03 Dose: 1 drop Levothyroxine Sodium (Synthroid) 88 mcg PO DAILY@0630 [facility] Last Admin: 12/14/17 06:24 Dose: 88 mcg Magnesium Hydroxide (Milk Of Magnesia) 30 ml PO HS PRN PRN Reason: Constipation Last Admin: 12/11/17 18:27 Dose: 30 ml Ondansetron HCl (Zofran Odt) 8 mg PO Q8 PRN PRN Reason: Nausea/Vomiting Last Admin: 12/03/17 09:07 Dose: 8 mg - Labs Labs: 12/14/17 05:20 12/14/17 05:20 - Constitutional Appears: No Acute Distress - Head Exam Head Exam: NORMAL INSPECTION - Eye Exam Pupil Exam: PERRL - Neurological Exam Neurological Exam: Alert, Awake Neuro motor strength exam: Left Upper Extremity: 5, Right Upper Extremity: 3, Left Lower Extremity: 5, Right Lower Extremity: 3 Additional comments: neurological unchanged from previous examination. Assessment and Plan (1) Ischemic stroke Assessment & Plan: Case discussed with Dr. Newton, continue all current medical, physical, occupational, and speech therapies. Recommend monitor blood pressure closely, hydration, keep head of bed elevated at least 30 degrees. Status: Acute
--- NOTE | 2017-12-14 15:57 | CP.PCM.PN ---
Subjective - Date & Time of Evaluation Date of Evaluation: 12/14/17 Time of Evaluation: 11:00 - Subjective Subjective: Patient seen and examined. Denied any complaint. Objective - Vital Signs/Intake and Output Vital Signs (last 24 hours): Temp Pulse Resp BP Pulse Ox 98.1 F 62 18 113/71 99 12/14/17 08:04 12/14/17 08:04 12/14/17 08:04 12/14/17 08:04 12/14/17 08:04 - Medications Medications: Current Medications Acetaminophen (Tylenol 325mg Tab) 650 mg PO Q6 PRN PRN Reason: Pain scale 1-10 Acetaminophen/Butalbital/Caffeine (Fioricet) 1 tab PO Q4 PRN PRN Reason: Headache Aspirin (Aspirin Chewable) 81 mg PO DAILY [facility] Last Admin: 12/14/17 09:10 Dose: 81 mg Atorvastatin Calcium (Lipitor) 10 mg PO HS [facility] Last Admin: 12/13/17 21:00 Dose: 10 mg Clopidogrel Bisulfate (Plavix) 75 mg PO DAILY [facility] Last Admin: 12/14/17 09:10 Dose: 75 mg Enoxaparin Sodium (Lovenox) 40 mg SC DAILY [facility] PRN Reason: Protocol Last Admin: 12/14/17 09:10 Dose: 40 mg Famotidine (Pepcid) 20 mg PO DAILY [facility] Last Admin: 12/14/17 09:10 Dose: 20 mg Lactulose (Enulose) 20 gm PO DAILY PRN PRN Reason: Constipation Latanoprost (Xalatan Opht) 1 drop OU HS [facility] Last Admin: 12/13/17 21:03 Dose: 1 drop Levothyroxine Sodium (Synthroid) 88 mcg PO DAILY@0630 [facility] Last Admin: 12/14/17 06:24 Dose: 88 mcg Magnesium Hydroxide (Milk Of Magnesia) 30 ml PO HS PRN PRN Reason: Constipation Last Admin: 12/11/17 18:27 Dose: 30 ml Ondansetron HCl (Zofran Odt) 8 mg PO Q8 PRN PRN Reason: Nausea/Vomiting Last Admin: 12/03/17 09:07 Dose: 8 mg - Labs Labs: 12/14/17 05:20 12/14/17 05:20 - Constitutional Appears: No Acute Distress - Head Exam Head Exam: ATRAUMATIC - Eye Exam Eye Exam: absent: Scleral icterus - ENT Exam ENT Exam: Mucous Membranes Moist - Neck Exam Neck Exam: absent: Meningismus - Respiratory Exam Respiratory Exam: absent: Rales, Rhonchi, Wheezes, Respiratory Distress - Cardiovascular Exam Cardiovascular Exam: REGULAR RHYTHM, +S1, +S2 - GI/Abdominal Exam GI & Abdominal Exam: Soft. absent: Tenderness - Rectal Exam Rectal Exam: Deferred - Neurological Exam Neurological Exam: Alert, Oriented x3 - Psychiatric Exam Psychiatric exam: Normal Affect - Skin Skin Exam: Dry, Intact Assessment and Plan - Assessment and Plan (Free Text) Assessment: 77 yo female admitted to acute rehab for therapy after suffering from acute left MCA CVA 1. Left MCA CVA continue PT/OT/ST continue ASA and Plavix 2. HTN BP controlled without medication 3. Hypothyroidism continue Levothyroxine
[2017-12-14] MEDS: Latanoprost 0.005% Opht SOUTION OU SCH (21:30)
[2017-12-15] MEDS: Levothyroxine 88 MCG TAB PO SCH (06:07)
[2017-12-15] MEDS: Enoxaparin 40 mg Syringe SC SCH (08:13)
[2017-12-15] MEDS: Latanoprost 0.005% Opht SOUTION OU SCH (21:24)
[2017-12-16] MEDS: Levothyroxine 88 MCG TAB PO SCH (06:30)
[2017-12-16] MEDS: Enoxaparin 40 mg Syringe SC SCH (08:21)
--- NOTE | 2017-12-16 09:35 | CP.PCM.PN ---
Subjective - Date & Time of Evaluation Date of Evaluation: 12/16/17 Time of Evaluation: 09:34 - Subjective Subjective: Ms. Spence was seen and examined at the therapy room. She is alert, oriented. She denies any headache, blurred vision, diplopia, dizziness. She is able to follow simple commands with right side weakness. She still needs minimal assistance with feeding. She is able to participate during her therapy session, ambulating with walker with steady gait. There was no untoward events overnight. Objective - Vital Signs/Intake and Output Vital Signs (last 24 hours): Temp Pulse Resp BP Pulse Ox 97.3 F L 75 20 140/79 97 12/16/17 08:18 12/16/17 08:18 12/16/17 08:18 12/16/17 08:18 12/16/17 08:18 - Medications Medications: Current Medications Acetaminophen (Tylenol 325mg Tab) 650 mg PO Q6 PRN PRN Reason: Pain scale 1-10 Acetaminophen/Butalbital/Caffeine (Fioricet) 1 tab PO Q4 PRN PRN Reason: Headache Aspirin (Aspirin Chewable) 81 mg PO DAILY [facility] Last Admin: 12/16/17 08:21 Dose: 81 mg Atorvastatin Calcium (Lipitor) 10 mg PO HS [facility] Last Admin: 12/15/17 21:24 Dose: 10 mg Clopidogrel Bisulfate (Plavix) 75 mg PO DAILY [facility] Last Admin: 12/16/17 08:21 Dose: 75 mg Enoxaparin Sodium (Lovenox) 40 mg SC DAILY [facility] PRN Reason: Protocol Last Admin: 12/16/17 08:21 Dose: 40 mg Famotidine (Pepcid) 20 mg PO DAILY [facility] Last Admin: 12/16/17 08:21 Dose: 20 mg Lactulose (Enulose) 20 gm PO DAILY PRN PRN Reason: Constipation Latanoprost (Xalatan Opht) 1 drop OU HS [facility] Last Admin: 12/15/17 21:24 Dose: 1 drop Levothyroxine Sodium (Synthroid) 88 mcg PO DAILY@0630 [facility] Last Admin: 12/16/17 06:30 Dose: 88 mcg Magnesium Hydroxide (Milk Of Magnesia) 30 ml PO HS PRN PRN Reason: Constipation Last Admin: 12/11/17 18:27 Dose: 30 ml Ondansetron HCl (Zofran Odt) 8 mg PO Q8 PRN PRN Reason: Nausea/Vomiting Last Admin: 12/03/17 09:07 Dose: 8 mg - Labs Labs: 12/14/17 05:20 12/14/17 05:20 - Constitutional Appears: No Acute Distress - Head Exam Head Exam: NORMAL INSPECTION - Eye Exam Pupil Exam: PERRL - Neurological Exam Neurological Exam: Alert, Awake, Oriented x3 Neuro motor strength exam: Left Upper Extremity: 5, Right Upper Extremity: 4, Left Lower Extremity: 5, Right Lower Extremity: 4 Additional comments: neurological unchanged from previous examination. Assessment and Plan (1) Ischemic stroke Assessment & Plan: Case discussed with Dr. Newton, continue all current medical, physical, occupational, and speech therapies. Recommend monitor blood pressure closely, hydration, keep head of bed elevated at least 30 degrees.For discharge planning to make an appointment with either Dr. Newton/ Charlie for follow up 2 weeks after discharge. Status: Acute
--- NOTE | 2017-12-16 11:38 | PSY.TMCNF ---
Nursing - Vital Signs Vital Signs (Last 8 hours): Vital Signs 12/16/17 12/16/17 08:18 11:19 Temperature 97.3 F L 97.3 F L Pulse Rate 75 75 Respiratory 20 20 Rate Blood Pressure 140/79 140/79 O2 Sat by Pulse 97 Oximetry Pain: 0 - Precautions: Precautions: Fall Prevention - Medications/Other Issues Comment: Pt at moderate nutritional risk. 1. Pt will maintain within 2 lbs of current weight. 2. PO intake with be 75-100%. Follow-up due on 12/17/2017 - Consults Comment: Dr. Lorenz/ Dr. Newton/ Dr. Pack - Toileting Toileting: Supervision - Bladder Management Bladder Pattern: Normal Voiding Method: Toilet Bladder Management: Supervision Frequency of Accidents: 0 - Bowel Management Bowel Pattern: Normal Bowel Management: Supervision Frequency of Accidents: 0 - Transfers Transfers: Supervision - ADL's ADL's: Supervision - Patient/Family Teaching Comments: Care post CVA and safety precautions - Goals/Time Frame Comments: Per multidisciplinary care plan and goals - Provider Provider: Stephanie LOPEZN RN CRRN Physical Therapy - Bed Mobility Bed Mobility: Supervision - Transfers Wheelchair to Mat: Supervision Sit to Stand: Supervision, Verbal Cues - Ambulation Level of Assistance: Supervision Distance (ft.): 150 Assistive Devices: Rolling Walker - Stair Negotiation Stairs: Level of Assistance: Supervision, Verbal Cues Handrails: Left Stairs: Assistive Devices: Left Handrail - Standing Balance Static Stand: Supervision Dynamic Stand: Contact Guard Assist - Pain Pain (assessed during therapy session): 0 - Insight/Carryover Insight/Carryover: Good - Patient/Family Education Comment: CVA Recovery, safety - Assessment/Plan Assessment: Pt actively participating in PT tx sessions focusing on BLE strengthening exercises, balance and endurance activities, and functional molbility training. Pt performed bed mobility and transfers with S, ambulates 150 ft with RW and S, and negotiates flight of stairs with S/CGA. Pt will continue to benefit from skilled PT intervention to address deficits, reduce fall risk, and maximize functional independene. Recommend d/c home with home PT - Goals Timeframe: 1 week Goals: Sit < > Supine mod I. Sit < > stand mod I with RW. Pt will ambulate 300 ft mod I with RW - Provider Therapist: Nadine Gaviria PT DPT License Number: [id number] Occupational Therapy - Arousal/Attention/Orientation Patient Orientation: Person, Place - ADL/IADL Self Feeding: Independent, Set-up Help Grooming: Independent, Set-up Help Bathing-Upper Extremity: Verbal Cues, Set-up Help, Minimal Assistance Bathing-Lower Extremity: Verbal Cues, Set-up Help, Minimal Assistance Dressing-Upper Extremity: Supervision, Verbal Cues, Set-up Help Dressing-Lower Extremity: Verbal Cues, Set-up Help, Minimal Assistance Homemaking: Verbal Cues, Set-up Help, Minimal Assistance Comment: -pt limited by vision, RUE motor control, impaired standing balance and impaired safety awareness & depressed mood - Sitting Balance Static Sitting: Supervision Dynamic Sitting: Requires supervision Comment: seated un supported - Transfers Wheelchair to Bed Transfers: Verbal Cues, Set-up Help, Contact Guard, Minimal Assistance Toilet Transfers: Set-up Help, Contact Guard, Minimal Assistance Comment: shower bench transfers: Min assist/CG and verbal cues for hand placement, reach/step back safely - Wheelchair Management Level of Assistance: Not Applicable - Upper Extremity Status Right Upper Extremity Comment: AROM is WFLS, decreased coordination/dexterity and motor planning. Left Upper Extremity Comment: AROM is WFLS, strength 4/5 - Pain Pain (assessed during therapy session): 0 - Insight/Carryover Insight/Carryover: Good - Patient/Family Education Comment: CVA Recovery, safety - Assessment/Plan Assessment: Pt actively participating in PT tx sessions focusing on BLE strengthening exercises, balance and endurance activities, and functional molbility training. Pt performed bed mobility and transfers with S, ambulates 150 ft with RW and S, and negotiates flight of stairs with S/CGA. Pt will continue to benefit from skilled PT intervention to address deficits, reduce fall risk, and maximize functional independene. Recommend d/c home with home PT - Goals Timeframe: 1 week Goals: Sit < > Supine mod I. Sit < > stand mod I with RW. Pt will ambulate 300 ft mod I with RW - Provider Therapist: Tracie Preston OTR/L License Number: [id number] Speech Therapy - Consult Information Patient on Program: Yes Medical Diagnosis: CVA Treatment Diagnosis: mild-moderate cognitive deficits - Assessment Problem Solving Impairment: Mild Memory Impairment: Moderate - Plan Assessment: Pt actively participating in PT tx sessions focusing on BLE strengthening exercises, balance and endurance activities, and functional molbility training. Pt performed bed mobility and transfers with S, ambulates 150 ft with RW and S, and negotiates flight of stairs with S/CGA. Pt will continue to benefit from skilled PT intervention to address deficits, reduce fall risk, and maximize functional independene. Recommend d/c home with home PT - Provider Therapist: Ivy Gamble License Number: [id number] Recreational Therapy - Participation Participation: Participates in Individual and/or Group Sessions - Attendance Attendance: Daily - Activities Leisure Activities: Cards and Games - Socialization Level of Socialization: Initiates/interacts freely with care givers and peer - Diversional Time Diversional Time: television - Assessment Assessment/Plan: Pt actively participating in PT tx sessions focusing on BLE strengthening exercises, balance and endurance activities, and functional molbility training. Pt performed bed mobility and transfers with S, ambulates 150 ft with RW and S, and negotiates flight of stairs with S/CGA. Pt will continue to benefit from skilled PT intervention to address deficits, reduce fall risk, and maximize functional independene. Recommend d/c home with home PT - Provider Therapist: Nanci Aguilar, [employer] #[id number] Nutrition - Current Diet Current Diet/ Supplement/ Feedings: Heart healthy diet - Appetite Percent Meal Consumed: 75-100% - Comments Comments: Care post CVA and safety precautions - Assessment/Goals/Time Frame Assessment/Goals/Time Frame: Pt at moderate nutritional risk. 1. Pt will maintain within 2 lbs of current weight. 2. PO intake with be 75-100%. Follow- up due on 12/17/2017 - Provider Provider: Diane Márquez RD Case Management - Psychosocial Assessment Support Systems: Lives in same house as Granddaughter Kelsey Wallace [phone] ( Pt is in finished basement apartment). Daughter Rosalba [phone] Psychological Interventions/Needs: Pt is alert and oriented x3, improved memory but expresses frustration about being in the hospital Discharge Concerns: Pt would benefit from psychology given recent childrens' passing (psychology consult ordered) Patient/Family Meeting: CM met with pt and pt's granddaughter Kelsey with pt's consent (as well as rehab team) Intervention/Goal/Outcome:: 1. Plan: Home with skilled homecare services (pt known to [facility]). Tentative d/c date: 12/20/17 Goal: 24hr supervision 2. DME: TBD (pt has a quad cane, commode, and shower chair with back at home) GOAL: 24hr supervision; Spoke with pt and Kelsey at bedside; Kelsey states her boyfriend does not work and would be able to supervise pt while Kelsey works. They will also assist in meal preparation and grocery shopping (per Kelsey, pt was able to cook own meals prior to admission). CM also provided information about [employer] which Kelsey will enroll pt in (provided coupon for free enrollment). CM also discussed Medicaid which pt is ineligible for based on income; Discussed questions regarding insurance as well. Julianne LAD: 12/11/17 per insurance. Will follow closely for safe discharge home with referral to [facility] and continued stay review. - Discharge Plan Discharge Plan: Home with services - Provider Provider: TAJ Germain, HOSPICE HOME HEALTH AIDE License Number: [id number] Rehabilitation Plan - Treatment Plan Treatment Plan: Physical Therapy, Occupational Therapy, Speech, Dietary, Patient /Family Education - Recommendation Recommendation: Physical Therapy, Occupational Therapy, Speech, Dietary, Patient /Family Education - Discharge Plan Discharge to: Home (Dc thursday)
--- NOTE | 2017-12-16 12:01 | CP.PCM.PN ---
Subjective - Date & Time of Evaluation Date of Evaluation: 12/16/17 Time of Evaluation: 10:00 - Subjective Subjective: no acute complaints at present Objective - Vital Signs/Intake and Output Vital Signs (last 24 hours): Temp Pulse Resp BP Pulse Ox 97.3 F L 75 20 140/79 97 12/16/17 11:19 12/16/17 11:19 12/16/17 11:19 12/16/17 11:19 12/16/17 08:18 - Medications Medications: Current Medications Acetaminophen (Tylenol 325mg Tab) 650 mg PO Q6 PRN PRN Reason: Pain scale 1-10 Acetaminophen/Butalbital/Caffeine (Fioricet) 1 tab PO Q4 PRN PRN Reason: Headache Aspirin (Aspirin Chewable) 81 mg PO DAILY [facility] Last Admin: 12/16/17 08:21 Dose: 81 mg Atorvastatin Calcium (Lipitor) 10 mg PO HS [facility] Last Admin: 12/15/17 21:24 Dose: 10 mg Clopidogrel Bisulfate (Plavix) 75 mg PO DAILY [facility] Last Admin: 12/16/17 08:21 Dose: 75 mg Enoxaparin Sodium (Lovenox) 40 mg SC DAILY [facility] PRN Reason: Protocol Last Admin: 12/16/17 08:21 Dose: 40 mg Famotidine (Pepcid) 20 mg PO DAILY [facility] Last Admin: 12/16/17 08:21 Dose: 20 mg Lactulose (Enulose) 20 gm PO DAILY PRN PRN Reason: Constipation Latanoprost (Xalatan Opht) 1 drop OU HS [facility] Last Admin: 12/15/17 21:24 Dose: 1 drop Levothyroxine Sodium (Synthroid) 88 mcg PO DAILY@0630 [facility] Last Admin: 12/16/17 06:30 Dose: 88 mcg Magnesium Hydroxide (Milk Of Magnesia) 30 ml PO HS PRN PRN Reason: Constipation Last Admin: 12/11/17 18:27 Dose: 30 ml Ondansetron HCl (Zofran Odt) 8 mg PO Q8 PRN PRN Reason: Nausea/Vomiting Last Admin: 12/03/17 09:07 Dose: 8 mg - Labs Labs: 12/14/17 05:20 12/14/17 05:20 - Head Exam Head Exam: ATRAUMATIC, NORMAL INSPECTION, NORMOCEPHALIC - Eye Exam Eye Exam: EOMI, Normal appearance, PERRL - ENT Exam ENT Exam: Mucous Membranes Moist, Normal Exam - Neck Exam Neck Exam: Full ROM, Normal Inspection - Respiratory Exam Respiratory Exam: Clear to Ausculation Bilateral, NORMAL BREATHING PATTERN - Cardiovascular Exam Cardiovascular Exam: REGULAR RHYTHM - Rectal Exam Rectal Exam: NORMAL INSPECTION - Exam External exam: NORMAL EXTERNAL EXAM - Extremities Exam Extremities Exam: Full ROM, Normal Capillary Refill, Normal Inspection - Back Exam Back Exam: vertebral tenderness - Neurological Exam Neurological Exam: Alert, Awake Neuro motor strength exam: Left Upper Extremity: 3, Right Upper Extremity: 3, Left Lower Extremity: 3, Right Lower Extremity: 3 - Psychiatric Exam Psychiatric exam: Normal Affect, Normal Mood - Skin Skin Exam: Dry, Intact Assessment and Plan (1) Back pain Status: Acute (2) CHF (congestive heart failure) Status: Acute (3) Dizziness Status: Acute (4) Ischemic stroke Assessment & Plan: plan for Dc now thursday equipment ordered, status post PT OT Rc and speech therapy team conferenc Status: Acute (5) Osteoarthritis Status: Acute (6) Peripheral edema Status: Acute
--- NOTE | 2017-12-16 12:03 | CP.PCM.PN ---
Subjective - Date & Time of Evaluation Date of Evaluation: 12/15/17 Time of Evaluation: 21:00 - Subjective Subjective: no acute complaints at present Objective - Vital Signs/Intake and Output Vital Signs (last 24 hours): Temp Pulse Resp BP Pulse Ox 97.3 F L 75 20 140/79 97 12/16/17 11:19 12/16/17 11:19 12/16/17 11:19 12/16/17 11:19 12/16/17 08:18 - Medications Medications: Current Medications Acetaminophen (Tylenol 325mg Tab) 650 mg PO Q6 PRN PRN Reason: Pain scale 1-10 Acetaminophen/Butalbital/Caffeine (Fioricet) 1 tab PO Q4 PRN PRN Reason: Headache Aspirin (Aspirin Chewable) 81 mg PO DAILY [facility] Last Admin: 12/16/17 08:21 Dose: 81 mg Atorvastatin Calcium (Lipitor) 10 mg PO HS [facility] Last Admin: 12/15/17 21:24 Dose: 10 mg Clopidogrel Bisulfate (Plavix) 75 mg PO DAILY [facility] Last Admin: 12/16/17 08:21 Dose: 75 mg Enoxaparin Sodium (Lovenox) 40 mg SC DAILY [facility] PRN Reason: Protocol Last Admin: 12/16/17 08:21 Dose: 40 mg Famotidine (Pepcid) 20 mg PO DAILY [facility] Last Admin: 12/16/17 08:21 Dose: 20 mg Lactulose (Enulose) 20 gm PO DAILY PRN PRN Reason: Constipation Latanoprost (Xalatan Opht) 1 drop OU HS [facility] Last Admin: 12/15/17 21:24 Dose: 1 drop Levothyroxine Sodium (Synthroid) 88 mcg PO DAILY@0630 [facility] Last Admin: 12/16/17 06:30 Dose: 88 mcg Magnesium Hydroxide (Milk Of Magnesia) 30 ml PO HS PRN PRN Reason: Constipation Last Admin: 12/11/17 18:27 Dose: 30 ml Ondansetron HCl (Zofran Odt) 8 mg PO Q8 PRN PRN Reason: Nausea/Vomiting Last Admin: 12/03/17 09:07 Dose: 8 mg - Labs Labs: 12/14/17 05:20 12/14/17 05:20 - Head Exam Head Exam: ATRAUMATIC, NORMAL INSPECTION, NORMOCEPHALIC - Eye Exam Eye Exam: EOMI, Normal appearance, PERRL Pupil Exam: NORMAL ACCOMODATION - ENT Exam ENT Exam: Mucous Membranes Moist, Normal Exam - Neck Exam Neck Exam: Full ROM, Normal Inspection - Respiratory Exam Respiratory Exam: Clear to Ausculation Bilateral, NORMAL BREATHING PATTERN - Cardiovascular Exam Cardiovascular Exam: REGULAR RHYTHM - GI/Abdominal Exam GI & Abdominal Exam: Soft, Normal Bowel Sounds - Rectal Exam Rectal Exam: NORMAL INSPECTION - Exam External exam: NORMAL EXTERNAL EXAM - Extremities Exam Extremities Exam: Full ROM, Normal Capillary Refill, Normal Inspection - Back Exam Back Exam: NORMAL INSPECTION - Neurological Exam Neurological Exam: Alert, Awake Neuro motor strength exam: Left Upper Extremity: 3, Right Upper Extremity: 3, Left Lower Extremity: 3, Right Lower Extremity: 3 - Psychiatric Exam Psychiatric exam: Normal Affect, Normal Mood - Skin Skin Exam: Dry, Intact Assessment and Plan (1) Back pain Status: Acute (2) CHF (congestive heart failure) Status: Acute (3) Dizziness Status: Acute (4) Ischemic stroke Assessment & Plan: plan for pt ot rec and speech therapy Status: Acute (5) Osteoarthritis Status: Acute (6) Peripheral edema Status: Acute
--- NOTE | 2017-12-16 12:05 | CP.PCM.PN ---
Subjective - Date & Time of Evaluation Date of Evaluation: 12/13/17 Time of Evaluation: 12:00 - Subjective Subjective: no acute complaint of any pain Objective - Vital Signs/Intake and Output Vital Signs (last 24 hours): Temp Pulse Resp BP Pulse Ox 97.3 F L 75 20 140/79 97 12/16/17 11:19 12/16/17 11:19 12/16/17 11:19 12/16/17 11:19 12/16/17 08:18 - Medications Medications: Current Medications Acetaminophen (Tylenol 325mg Tab) 650 mg PO Q6 PRN PRN Reason: Pain scale 1-10 Acetaminophen/Butalbital/Caffeine (Fioricet) 1 tab PO Q4 PRN PRN Reason: Headache Aspirin (Aspirin Chewable) 81 mg PO DAILY [facility] Last Admin: 12/16/17 08:21 Dose: 81 mg Atorvastatin Calcium (Lipitor) 10 mg PO HS [facility] Last Admin: 12/15/17 21:24 Dose: 10 mg Clopidogrel Bisulfate (Plavix) 75 mg PO DAILY [facility] Last Admin: 12/16/17 08:21 Dose: 75 mg Enoxaparin Sodium (Lovenox) 40 mg SC DAILY [facility] PRN Reason: Protocol Last Admin: 12/16/17 08:21 Dose: 40 mg Famotidine (Pepcid) 20 mg PO DAILY [facility] Last Admin: 12/16/17 08:21 Dose: 20 mg Lactulose (Enulose) 20 gm PO DAILY PRN PRN Reason: Constipation Latanoprost (Xalatan Opht) 1 drop OU HS [facility] Last Admin: 12/15/17 21:24 Dose: 1 drop Levothyroxine Sodium (Synthroid) 88 mcg PO DAILY@0630 [facility] Last Admin: 12/16/17 06:30 Dose: 88 mcg Magnesium Hydroxide (Milk Of Magnesia) 30 ml PO HS PRN PRN Reason: Constipation Last Admin: 12/11/17 18:27 Dose: 30 ml Ondansetron HCl (Zofran Odt) 8 mg PO Q8 PRN PRN Reason: Nausea/Vomiting Last Admin: 12/03/17 09:07 Dose: 8 mg - Labs Labs: 12/14/17 05:20 12/14/17 05:20 - Head Exam Head Exam: ATRAUMATIC, NORMAL INSPECTION, NORMOCEPHALIC - Eye Exam Eye Exam: EOMI, Normal appearance, PERRL Pupil Exam: NORMAL ACCOMODATION - ENT Exam ENT Exam: Mucous Membranes Moist, Normal Exam - Neck Exam Neck Exam: Full ROM, Normal Inspection - Respiratory Exam Respiratory Exam: Clear to Ausculation Bilateral, NORMAL BREATHING PATTERN - Cardiovascular Exam Cardiovascular Exam: REGULAR RHYTHM - GI/Abdominal Exam GI & Abdominal Exam: Soft, Normal Bowel Sounds - Rectal Exam Rectal Exam: NORMAL INSPECTION - Exam External exam: NORMAL EXTERNAL EXAM - Extremities Exam Extremities Exam: Full ROM, Normal Capillary Refill, Normal Inspection - Back Exam Back Exam: NORMAL INSPECTION - Neurological Exam Neurological Exam: Alert, Awake Neuro motor strength exam: Left Upper Extremity: 3, Right Upper Extremity: 3, Left Lower Extremity: 3, Right Lower Extremity: 3 - Psychiatric Exam Psychiatric exam: Normal Affect, Normal Mood - Skin Skin Exam: Dry, Intact Assessment and Plan (1) Back pain Status: Acute (2) CHF (congestive heart failure) Status: Acute (3) Dizziness Status: Acute (4) Ischemic stroke Assessment & Plan: plan for physical, occupational rec therapy speech therapy Status: Acute (5) Osteoarthritis Status: Acute (6) Peripheral edema Status: Acute
[2017-12-16] MEDS: Magnesium Hydroxide Susp 30 ml UD PO PRN (17:27)
[2017-12-16] MEDS: Latanoprost 0.005% Opht SOUTION OU SCH (21:06)
--- NOTE | 2017-12-16 23:16 | PN ---
DATE: 12/15/2017 DAILY PROGRESS NOTE SUBJECTIVE: The patient was seen on 12/15/2017. She was cooperative to physical therapy and occupational therapy. PHYSICAL EXAMINATION: VITAL SIGNS: Blood pressure 145/89, temperature 97.9, respiratory rate 20, and pulse of 68. HEENT: Pupils are equal and reactive to light. Normal-appearing mucosa of the conjunctivae, oropharynx and nasal membrane mucosa. NECK: Supple. No JVD. No carotid bruits. No lymph nodes. No thyromegaly. CHEST AND LUNGS: Bilateral symmetrical expansion. Good air exchange. No rales. No rhonchi. CARDIOVASCULAR SYSTEM: PMI not localized. S1 and S2. No additional sounds. ABDOMEN: Normoactive bowel sounds. No tenderness. No organomegaly. No masses. EXTREMITIES: No cyanosis, no clubbing, no edema. CENTRAL NERVOUS SYSTEM: Alert, awake, and oriented x2. No neurological deficit could be appreciated except for slight right-sided hemiparesis. ASSESSMENT: Left middle cerebral artery cerebrovascular accident, hypertension, hypercholesterolemia. PLAN: Continue current medications including double antiplatelets and physical therapy. Joanie Calixto MD
[2017-12-17 06:49] LABS: HEMOGLOBIN 10.6 g/dL (12.0-16.0); MEAN CORPUSCULAR HEMOGLOBIN 22.4 pg (27.0-31.0); MEAN CORPUSCULAR HGB CONC 30.6 g/dL (33.0-37.0); RBC 4.73 Mil/uL (3.80-5.20); RED CELL DISTRIBUTION WIDTH 15.5 % (11.5-14.5); WHITE BLOOD COUNT 6.8 K/uL (4.8-10.8)
[2017-12-17] MEDS: Levothyroxine 88 MCG TAB PO SCH (06:53)
[2017-12-17 07:39] LABS: BLOOD UREA NITROGEN 19 mg/dl (7-17); CALCIUM 9.3 mg/dL (8.4-10.2); GFR AFRICAN-AMERICAN > 60; GFR NON-AFRICAN AMERICAN > 60
[2017-12-17] MEDS: Enoxaparin 40 mg Syringe SC SCH (08:49)
--- NOTE | 2017-12-17 10:53 | CP.PCM.PN ---
Subjective - Date & Time of Evaluation Date of Evaluation: 12/17/17 Time of Evaluation: 10:53 - Subjective Subjective: Ms. Spence was seen and examined at the therapy room. She is alert, oriented. She denies any headache, blurred vision, diplopia, dizziness. She is able to follow simple commands with right side weakness. She still needs minimal assistance with feeding. She is able to participate during her therapy session, ambulating with walker with steady gait. She is excited of going home harshil.There was no untoward events overnight. Objective - Vital Signs/Intake and Output Vital Signs (last 24 hours): Temp Pulse Resp BP Pulse Ox 98.2 F 63 20 129/77 99 12/17/17 07:54 12/17/17 07:54 12/17/17 07:54 12/17/17 07:54 12/17/17 07:54 - Medications Medications: Current Medications Acetaminophen (Tylenol 325mg Tab) 650 mg PO Q6 PRN PRN Reason: Pain scale 1-10 Acetaminophen/Butalbital/Caffeine (Fioricet) 1 tab PO Q4 PRN PRN Reason: Headache Aspirin (Aspirin Chewable) 81 mg PO DAILY [facility] Last Admin: 12/17/17 08:49 Dose: 81 mg Atorvastatin Calcium (Lipitor) 10 mg PO HS [facility] Last Admin: 12/16/17 21:06 Dose: 10 mg Clopidogrel Bisulfate (Plavix) 75 mg PO DAILY [facility] Last Admin: 12/17/17 08:49 Dose: 75 mg Enoxaparin Sodium (Lovenox) 40 mg SC DAILY [facility] PRN Reason: Protocol Last Admin: 12/17/17 08:49 Dose: 40 mg Famotidine (Pepcid) 20 mg PO DAILY [facility] Last Admin: 12/17/17 08:49 Dose: 20 mg Lactulose (Enulose) 20 gm PO DAILY PRN PRN Reason: Constipation Latanoprost (Xalatan Opht) 1 drop OU HS [facility] Last Admin: 12/16/17 21:06 Dose: 1 drop Levothyroxine Sodium (Synthroid) 88 mcg PO DAILY@0630 [facility] Last Admin: 12/17/17 06:53 Dose: 88 mcg Magnesium Hydroxide (Milk Of Magnesia) 30 ml PO HS PRN PRN Reason: Constipation Last Admin: 12/16/17 17:27 Dose: 30 ml Ondansetron HCl (Zofran Odt) 8 mg PO Q8 PRN PRN Reason: Nausea/Vomiting Last Admin: 12/03/17 09:07 Dose: 8 mg - Labs Labs: 12/17/17 05:25 12/17/17 05:25 - Constitutional Appears: No Acute Distress - Head Exam Head Exam: NORMAL INSPECTION - Eye Exam Pupil Exam: PERRL - Neurological Exam Neurological Exam: Alert, Awake, Oriented x3 Neuro motor strength exam: Left Upper Extremity: 5, Right Upper Extremity: 4, Left Lower Extremity: 5, Right Lower Extremity: 4 Additional comments: neurological unchanged from previous examination. Assessment and Plan (1) Ischemic stroke Assessment & Plan: Case discussed with Dr. Newton, continue all current medical, physical, occupational, and speech therapies. Recommend monitor blood pressure closely, hydration, keep head of bed elevated at least 30 degrees.For discharge planning to make an appointment with either Dr. Newton/ Charlie for follow up 2 weeks after discharg, at [address] [facility] [address] [place] [id number] tel. [phone] Status: Acute
[2017-12-17] MEDS: Latanoprost 0.005% Opht SOUTION OU SCH (21:51)
--- NOTE | 2017-12-17 21:54 | CP.PCM.PN ---
Subjective - Date & Time of Evaluation Date of Evaluation: 12/17/17 Time of Evaluation: 20:00 - Subjective Subjective: no acute complaints Objective - Vital Signs/Intake and Output Vital Signs (last 24 hours): Temp Pulse Resp BP Pulse Ox 97.9 F 64 20 131/76 97 12/17/17 20:07 12/17/17 20:07 12/17/17 20:07 12/17/17 20:07 12/17/17 20:07 - Medications Medications: Current Medications Acetaminophen (Tylenol 325mg Tab) 650 mg PO Q6 PRN PRN Reason: Pain scale 1-10 Acetaminophen/Butalbital/Caffeine (Fioricet) 1 tab PO Q4 PRN PRN Reason: Headache Aspirin (Aspirin Chewable) 81 mg PO DAILY [facility] Last Admin: 12/17/17 08:49 Dose: 81 mg Atorvastatin Calcium (Lipitor) 10 mg PO HS [facility] Last Admin: 12/17/17 21:47 Dose: 10 mg Clopidogrel Bisulfate (Plavix) 75 mg PO DAILY [facility] Last Admin: 12/17/17 08:49 Dose: 75 mg Enoxaparin Sodium (Lovenox) 40 mg SC DAILY [facility] PRN Reason: Protocol Last Admin: 12/17/17 08:49 Dose: 40 mg Famotidine (Pepcid) 20 mg PO DAILY [facility] Last Admin: 12/17/17 08:49 Dose: 20 mg Lactulose (Enulose) 20 gm PO DAILY PRN PRN Reason: Constipation Latanoprost (Xalatan Opht) 1 drop OU HS [facility] Last Admin: 12/17/17 21:51 Dose: 1 drop Levothyroxine Sodium (Synthroid) 88 mcg PO DAILY@0630 [facility] Last Admin: 12/17/17 06:53 Dose: 88 mcg Magnesium Hydroxide (Milk Of Magnesia) 30 ml PO HS PRN PRN Reason: Constipation Last Admin: 12/16/17 17:27 Dose: 30 ml Ondansetron HCl (Zofran Odt) 8 mg PO Q8 PRN PRN Reason: Nausea/Vomiting Last Admin: 12/03/17 09:07 Dose: 8 mg - Labs Labs: 12/17/17 05:25 12/17/17 05:25 - Head Exam Head Exam: ATRAUMATIC, NORMAL INSPECTION, NORMOCEPHALIC - Eye Exam Eye Exam: EOMI, Normal appearance Pupil Exam: NORMAL ACCOMODATION, PERRL - ENT Exam ENT Exam: Mucous Membranes Moist, Normal Exam - Respiratory Exam Respiratory Exam: Clear to Ausculation Bilateral, NORMAL BREATHING PATTERN - Cardiovascular Exam Cardiovascular Exam: REGULAR RHYTHM - GI/Abdominal Exam GI & Abdominal Exam: Normal Bowel Sounds - Rectal Exam Rectal Exam: NORMAL INSPECTION - Exam External exam: NORMAL EXTERNAL EXAM - Extremities Exam Extremities Exam: Normal Capillary Refill, Normal Inspection - Back Exam Back Exam: NORMAL INSPECTION - Neurological Exam Neurological Exam: Alert, Awake Neuro motor strength exam: Left Upper Extremity: 3, Right Upper Extremity: 3, Left Lower Extremity: 3, Right Lower Extremity: 3 - Psychiatric Exam Psychiatric exam: Normal Affect, Normal Mood - Skin Skin Exam: Dry, Normal Color Assessment and Plan (1) Back pain Status: Acute (2) CHF (congestive heart failure) Status: Acute (3) Dizziness Status: Acute (4) Ischemic stroke Assessment & Plan: status post physical, occupational, rec and speech therapy plan for Dc plan to get services after Dc. equipment for patient at home follow up PMD after DC Status: Acute (5) Osteoarthritis Status: Acute (6) Peripheral edema Status: Acute
[2017-12-18] MEDS: Levothyroxine 88 MCG TAB PO SCH (06:22)
[2017-12-18 07:35] VITALS: BP 126/73; PULSE 66; RESP 18; TEMP 97.7; O2SAT 100
--- NOTE | 2017-12-18 08:01 | CP.PCM.CON ---
History of Present Illness - History of Present Illness History of Present Illness: Pt seen for supportive therapy 7:20-7:40. Pt discusse readiness to return home. Pt spoke of gains and satisfaction, recovery and looking forward to the future. Pt adjusted well. Depression/anxeity denied. Past Patient History - Past Medical History & Family History Past Medical History?: Yes - Past Social History Smoking Status: Former Smoker - CARDIAC Hx Congestive Heart Failure: Yes Hx Hypercholesterolemia: Yes Hx Hypertension: Yes - NEUROLOGICAL HX Cerebrovascular Accident: Yes (As per patient had mild CVA) Other/Comment: As per Patient she had a mild stroke years ago, patient not sure what year. - ENDOCRINE/METABOLIC Other/Comment: Pre diabetic. 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 - HEMATOLOGICAL/ONCOLOGICAL Hx AIDS: No Hx Human Immunodeficiency Virus (HIV): No - MUSCULOSKELETAL/RHEUMATOLOGICAL Hx Falls: Yes - GENITOURINARY/GYNECOLOGICAL Other/Comment: fibroids - PSYCHIATRIC Hx Substance Use: No - SURGICAL HISTORY Hx Surgeries: No Other/Comment: bilateral tubal ligation - ANESTHESIA Hx Anesthesia: Yes Hx Anesthesia Reactions: No Meds Allergies/Adverse Reactions: Allergies Allergy/AdvReac Type Severity Reaction Status Date / Time No Known Allergies Allergy Verified 12/01/17 15:19 - Medications Medications: Current Medications Acetaminophen (Tylenol 325mg Tab) 650 mg PO Q6 PRN PRN Reason: Pain scale 1-10 Acetaminophen/Butalbital/Caffeine (Fioricet) 1 tab PO Q4 PRN PRN Reason: Headache Aspirin (Aspirin Chewable) 81 mg PO DAILY [facility] Last Admin: 12/17/17 08:49 Dose: 81 mg Atorvastatin Calcium (Lipitor) 10 mg PO HS [facility] Last Admin: 12/17/17 21:47 Dose: 10 mg Clopidogrel Bisulfate (Plavix) 75 mg PO DAILY [facility] Last Admin: 12/17/17 08:49 Dose: 75 mg Enoxaparin Sodium (Lovenox) 40 mg SC DAILY [facility] PRN Reason: Protocol Last Admin: 12/17/17 08:49 Dose: 40 mg Famotidine (Pepcid) 20 mg PO DAILY [facility] Last Admin: 12/17/17 08:49 Dose: 20 mg Lactulose (Enulose) 20 gm PO DAILY PRN PRN Reason: Constipation Latanoprost (Xalatan Opht) 1 drop OU HS [facility] Last Admin: 06/28/18 21:51 Dose: 1 drop Levothyroxine Sodium (Synthroid) 88 mcg PO DAILY@0630 [facility] Last Admin: 12/18/17 06:22 Dose: 88 mcg Magnesium Hydroxide (Milk Of Magnesia) 30 ml PO HS PRN PRN Reason: Constipation Last Admin: 12/16/17 17:27 Dose: 30 ml Ondansetron HCl (Zofran Odt) 8 mg PO Q8 PRN PRN Reason: Nausea/Vomiting Last Admin: 12/03/17 09:07 Dose: 8 mg Results - Vital Signs Recent Vital Signs: Last Vital Signs Temp 97.7 F 12/18/17 07:34 Pulse 66 12/18/17 07:34 Resp 18 12/18/17 07:34 BP 126/73 12/18/17 07:34 Pulse Ox 100 12/18/17 07:34 - Labs Result Diagrams: 12/17/17 05:25 12/17/17 05:25
[2017-12-18] MEDS: Enoxaparin 40 mg Syringe SC SCH (08:14)
--- NOTE | 2017-12-21 05:57 | DS ---
REASON FOR ADMISSION: This is a 77-year-old female with history of multiple medical problems, status post CVA who was admitted to acute rehabilitation for physical therapy and post CVA. COURSE OF HOSPITALIZATION: The patient was admitted to acute rehab floor at [facility]. The patient had a physical medicine and rehabilitation consult. The patient was cooperative to physical therapy, occupational therapy and speech therapy. The patient was continued on her medications during this admission; and blood pressure was controlled, and the patient was discharged to home in stable condition. To continue with the current medications and to follow with Dr. Morales, her primary care physician. FINAL DIAGNOSES: Left middle cerebral artery cerebrovascular accident, hypertension, hypothyroidism, hypercholesterolemia. [facility] MD Durga
== END 2017-12-18 10:30 | disposition home health service (06) | DRG 57 ==
PROVIDERS: ADMIT Internal Medicine; ATTEND Internal Medicine
PROC: F07Z9FZ Gait Training/Functional Ambulation Treatment using Assistive, Adaptive, Supportive or Protective Equipment (ICD-10-PCS; principal; 2017-12-01)
PROC: F08Z4FZ Home Management Treatment using Assistive, Adaptive, Supportive or Protective Equipment (ICD-10-PCS; 2017-12-01)
PROC: F07L6FZ Therapeutic Exercise Treatment of Musculoskeletal System - Lower Back / Lower Extremity using Assistive, Adaptive, Supportive or Protective Equipment (ICD-10-PCS; 2017-12-02)
DX: I69.351 Hemiplegia and hemiparesis following cerebral infarction affecting right dominant side (principal); H54.62 Unqualified visual loss, left eye, normal vision right eye; H91.92 Unspecified hearing loss, left ear; I11.0 Hypertensive heart disease with heart failure; I25.10 Atherosclerotic heart disease of native coronary artery without angina pectoris; I50.9 Heart failure, unspecified; E03.9 Hypothyroidism, unspecified; E78.00 Pure hypercholesterolemia, unspecified; F43.21 Adjustment disorder with depressed mood; M19.90 Unspecified osteoarthritis, unspecified site; Z87.891 Personal history of nicotine dependence; Z79.82 Long term (current) use of aspirin; Z79.02 Long term (current) use of antithrombotics/antiplatelets

== ENCOUNTER 2017-12-25 18:12 | Emergency (ER) | payer MEDICARE ==
[2017-12-25 18:13] VITALS: BMI 27.6
[2017-12-25 19:10] VITALS: BP 152/88; PULSE 70; RESP 16; TEMP 98.1; O2SAT 99
[2017-12-25] MEDS ORDERED: Silver Sulfadiazine 1% CREAM (50 gm) TOP STA (20:14)
[2017-12-25] MEDS ORDERED: Tdap Vaccine 0.5 ml Vial (10-64 yrs) IM ONE ×2 (20:15→20:33)
[2017-12-25] MEDS ORDERED: Silver Sulfadiazine 1% CREAM (50 gm) ONE (20:33)
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
--- NOTE | 2017-12-26 08:57 | RAD ---
PROCEDURE: Left Hip X-ray Radiographs. HISTORY: left hip pain fall COMPARISON: None. FINDINGS: BONES: No acute fracture. JOINTS: Bilateral hip narrowing. SOFT TISSUES: Normal. OTHER FINDINGS: None. IMPRESSION: No demonstrated fracture or dislocation. Narrowing of bilateral hips.
--- NOTE | 2017-12-26 08:59 | RAD ---
PROCEDURE: Radiographs of the Lumbar Spine. HISTORY: lumbar pain injury COMPARISON: No prior. FINDINGS: BONES: Normal alignment. No listhesis. No fracture. DISC SPACES: Limited evaluation of L5-S1 due to overlying gas and stool. OTHER FINDINGS: Prominent amount of retained colonic stool. IMPRESSION: Limited evaluation of L5-S1 due to overlying gas and stool.
== END 2017-12-25 23:25 | disposition home or self-care (01) ==
LOC: H.ER 18:12
DX: S39.92XA Unspecified injury of lower back, initial encounter (principal); W19.XXXA Unspecified fall, initial encounter; Y92.89 Other specified places as the place of occurrence of the external cause; T21.23XA Burn of second degree of upper back, initial encounter; E03.9 Hypothyroidism, unspecified; E78.00 Pure hypercholesterolemia, unspecified; I11.0 Hypertensive heart disease with heart failure; Z79.82 Long term (current) use of aspirin; Z86.73 Personal history of transient ischemic attack (TIA), and cerebral infarction without residual deficits
CPT/HCPCS: 72100; 73502; 90471; 90715; 96372; 99285; J1885